=== PATIENT | female | born 1970 | race Hispanic/Latino ===

== ENCOUNTER 2019-09-10 13:40 | Emergency (ER) | payer OTHER, MEDICAID, SELFPAY ==
[2019-09-10 13:58] VITALS: BP 143/73; PULSE 104; RESP 20; TEMP 38.1; O2SAT 99; BMI 30.2
--- NOTE | 2019-09-10 14:09 | DI.RAD.S_ITS ---
PROCEDURE: XR CHEST 1V INDICATIONS: Flu like symptoms TECHNIQUE: One view of the chest was acquired. COMPARISON: [facility], CR, XR CHEST 1 VIEW, 02/24/2019, 20:11. [facility], CR, XR CHEST 1 VIEW, 03/08/2019, 23:09. FINDINGS: Surgical changes and devices: None. Lungs and pleura: Lungs are clear. No pleural effusions or pneumothorax. Mediastinum: Mediastinal contours appear normal. Heart size is normal. Bones and chest wall: No suspicious bony lesions. Overlying soft tissues appear unremarkable. IMPRESSION: No acute cardiopulmonary abnormality. Dictated by: Rm Guadarrama M.D. on 09/10/2019 at 15:07 Approved by: Rm Guadarrama M.D. on 09/10/2019 at 15:07
--- NOTE | 2019-09-10 14:38 | ED.FEVER ---
HPI - Fever <[facility] - Last Filed: 09/10/19 16:34> General Chief Complaint: Fever Stated Complaint: Bad bodyaches, chills, headache, sore throat, SOB Time Seen by Provider: 09/10/19 14:01 Source: patient Mode of arrival: Ambulatory Limitations: no limitations History of Present Illness HPI Narrative: The patient is a 48-year-old female nonsmoker with history of dental abscess who presents with a chief complaint of bad body aches, chills headache sore throat and shortness of breath that started yesterday. She complains of fevers as well. She states that resolved before arriving at the emergency department today. She states she has a slightly dry cough. She denies any exposure to sick people. She does not work in public. She denies any abdominal pain complaints with nausea with slight vomiting. She had slight loose stools yesterday, but normal today. She has taken 2 Tylenol to feel better this morning. She complains of sore throat and states she feels like she is swallowing glass. She denies any ear pain. She is concerned about coronavirus. Related Data Previous Rx's Medication Instructions Recorded ondansetron 4 mg PO Q6H PRN #20 tab 09/10/19 Allergies Allergy/AdvReac Type Severity Reaction Status Date / Time No Known Drug Allergies Allergy Verified 09/10/19 14:39 Review of Systems <[facility] - Last Filed: 09/10/19 16:34> Review of Systems Narrative: GENERAL: See HPI HEENT: Denies sinus pain, ear pain, sore throat, difficulty swallowing, dizziness. RESPIRATORY: See HPI CARDIOVASCULAR: Denies chest pain, palpitations, orthopnea, edema, GASTROINTESTINAL: See HPI : Denies dysuria, frequency, incontinence, hematuria, urinary retention. MUSCULOSKELETAL: denies weakness, joint pain, or bony pain SKIN: Denies rash, skin lesions, or other NEUROLOGIC: Denies weakness, headache, numbness, change in speech, confusion, seizures, incoordination. PSYCHIATRIC: No concerning psychosocial issues. 12 point review of systems is negative except for those stated above Exam <[facility] - Last Filed: 09/10/19 16:34> Narrative Exam Narrative: GENERAL: This is a well-nourished, well-developed patient, no acute distress HEAD: Atraumatic. Normocephalic. No temporal or scalp tenderness. EYES: Pupils equal round and reactive. Extraocular motions intact. No scleral icterus. No injection or drainage. ENT: Nose without bleeding, purulent drainage or septal hematoma. Throat without erythema, tonsillar hypertrophy or exudate. Uvula midline. Airway patent. NECK: Trachea midline. No JVD or lymphadenopathy. Supple, nontender, no meningeal signs. CARDIOVASCULAR: Regular rate and rhythm RESPIRATORY: Clear to auscultation. Breath sounds equal bilaterally. No wheezes, rales, or rhonchi. No cough. No increased respiratory effort. No accessory muscle use. GASTROINTESTINAL: Abdomen soft, non-tender, nondistended. No hepato-splenomegaly, or palpable masses. No guarding. Active bowel sounds all 4 quadrants. EXTREMITIES: No clubbing, cyanosis, or edema. No joint tenderness, effusion, or edema noted. BACK: Nontender without deformity or crepitance. No flank tenderness. NEURO: AOx3. SKIN: No rash or erythema on visible skin Initial Vital Signs Initial Vital Signs: Vital Signs Temperature 100.6 F H 09/10/19 13:58 Pulse Rate 104 H 09/10/19 13:58 Respiratory Rate 20 09/10/19 13:58 Blood Pressure 143/73 H 09/10/19 13:58 Pulse Oximetry 99 09/10/19 13:58 <Morgan Barron MD - Last Filed: 09/12/19 15:17> Initial Vital Signs Initial Vital Signs: Vital Signs Temperature 100.6 F H 09/10/19 13:58 Pulse Rate 104 H 09/10/19 13:58 Respiratory Rate 20 09/10/19 13:58 Blood Pressure 143/73 H 09/10/19 13:58 Pulse Oximetry 99 09/10/19 13:58 Scores <ARPITA Ellis - Last Filed: 09/10/19 16:34> GCS [place] coma scale eye opening: Spontaneous [place] coma scale verbal response: Orientated [place] coma scale motor response: Obey commands Sarah coma scale total score: 15 Course <ARPITA Ellis - Last Filed: 09/10/19 16:34> Orders Ordered: Discontinued Medications Acetaminophen (Tylenol) 975 mg PO NOW ONE Stop: 09/10/19 14:09 Last Admin: 09/10/19 14:53 Dose: 975 mg Documented by: LOU Ondansetron HCl (Zofran Odt) 4 mg PO NOW ONE Stop: 09/10/19 14:09 Last Admin: 09/10/19 14:54 Dose: 4 mg Documented by: LOU Vital Signs Vital signs: Vital Signs - 8 hr 09/10/19 13:58 09/10/19 14:53 09/10/19 15:03 Temperature 100.6 F H 100.6 F H Pulse Rate 104 H 84 Respiratory Rate 20 18 Blood Pressure 143/73 H Blood Pressure [Left Arm] 126/63 Pulse Oximetry 99 99 09/10/19 15:13 09/10/19 16:28 Temperature Pulse Rate 84 71 Respiratory Rate 15 14 Blood Pressure Blood Pressure [Left Arm] 128/64 115/59 L Pulse Oximetry 100 99 <Morgan Barron MD - Last Filed: 09/12/19 15:17> Orders Ordered: Discontinued Medications Acetaminophen (Tylenol) 975 mg PO NOW ONE Stop: 09/10/19 14:09 Last Admin: 09/10/19 14:53 Dose: 975 mg Documented by: LOU Ondansetron HCl (Zofran Odt) 4 mg PO NOW ONE Stop: 09/10/19 14:09 Last Admin: 09/10/19 14:54 Dose: 4 mg Documented by: LOU Vital Signs Vital signs: Vital Signs - 8 hr 09/10/19 13:58 09/10/19 14:53 09/10/19 15:03 Temperature 100.6 F H 100.6 F H Pulse Rate 104 H 84 Respiratory Rate 20 18 Blood Pressure 143/73 H Blood Pressure [Left Arm] 126/63 Pulse Oximetry 99 99 09/10/19 15:13 09/10/19 16:28 Temperature Pulse Rate 84 71 Respiratory Rate 15 14 Blood Pressure Blood Pressure [Left Arm] 128/64 115/59 L Pulse Oximetry 100 99 MDM - Fever <ARPITA Ellis - Last Filed: 09/10/19 16:34> Lab Data Labs: Point of Care Testing Rapid Strep A Negative Imaging Data Chest x-ray: Radiologist's Impression: [address] [address] XRay Report Signed Patient: Sakina Schmidt [facility]#: [id number] : 1970Acct:[id number] Age/Sex: 48 / FDate of Service: 09/10/19 Loc: ED Accession Number: [id number] Procedure: XR chest 1V Ordering Provider: Angelica Thomas PROCEDURE: XR CHEST 1V INDICATIONS: Flu like symptoms TECHNIQUE: One view of the chest was acquired. COMPARISON: [facility], CR, XR CHEST 1 VIEW, 02/24/2019, 20:11. [facility], CR, XR CHEST 1 VIEW, 03/08/2019, 23:09. FINDINGS: Surgical changes and devices: None. Lungs and pleura: Lungs are clear. No pleural effusions or pneumothorax. Mediastinum: Mediastinal contours appear normal. Heart size is normal. Bones and chest wall: No suspicious bony lesions. Overlying soft tissues appear unremarkable. IMPRESSION: No acute cardiopulmonary abnormality. Dictated by: Rm Guadarrama M.D. on 09/10/2019 at 15:07 Approved by: Rm Guadarrama M.D. on 09/10/2019 at 15:07 [facility] Narrative Medical decision making narrative: The patient is a 48-year-old female who presents with a chief complaint of shortness of breath that was episodic yesterday, fevers muscle aches and chills. She is concerned about coronavirus. Her chest x-ray is overall benign. Her rapid strep came back negative. Her vitals are hemodynamically stable, she appears well and nontoxic. She is able to tolerate p.o. fluids after Zofran. I gave her prescription of Zofran. Discussed at length self isolation, pushing fluids, [id number] medications as needed and able. Discussed that coronavirus test comes back in 2-5 days we will call her if it is positive or negative. Discussed come back to the ER for any acute concerns such as increased shortness of breath, inability keep down fluids etcetera. Encourage PCP follow-up in the next few days. Patient has no questions or concerns upon discharge and states understanding of return precautions as well as follow-up care. <Morgan Barron MD - Last Filed: 09/12/19 15:17> Lab Data Labs: Point of Care Testing Rapid Strep A Negative Discharge Plan Departure Patient Disposition: Home Clinical Impression: Viral illness Discharge Date/Time: 09/10/19 16:36 Instructions: DI for COVID-19 (Suspected or Confirmed ), Coronavirus Disease 2019, Can COVID-19 be prevented? Activity Restrictions/Additional Instructions: Thank you for trusting us with your care today As I discussed your rapid strep came back negative, your chest x-ray shows no signs of pneumonia Given your symptoms of fever, body aches, chills, dry cough etcetera it is possible that you have coronavirus. As discussed, please self isolate at home. Please push fluids please use [id number] medications as needed and able. I sent a prescription of nausea medication to [facility] in [place] Please wash your hands, cover your coughs and sneezes, self quarantine at home in the meantime Please follow-up with primary care provider next few days Prescriptions: New ondansetron 4 mg tablet,disintegrating 4 mg PO Q6H PRN (Reason: nausea and vomiting) Qty: 20 RF: 0
[2019-09-10 14:53] VITALS: TEMP 38.1
[2019-09-10] MEDS: ACETAMINOPHEN 325 MG TABLET 975 MG PO (14:53)
[2019-09-10] MEDS: ONDANSETRON 4 MG ODT PO (14:54)
[2019-09-10 15:03] VITALS: BP 126/63; PULSE 84; RESP 18; O2SAT 99
[2019-09-10 15:13] VITALS: BP 128/64; PULSE 84; RESP 15; O2SAT 100
[2019-09-10 16:28] VITALS: BP 115/59; PULSE 71; RESP 14; O2SAT 99
[2019-09-10 16:35] VITALS: TEMP 37
[2019-09-14 06:37] LABS: COVID19 Sendout Not Detected (Not Detected)
== END 2019-09-10 16:36 | disposition home or self-care (01) ==
PROVIDERS: Emergency Provider Nurse Practitioner Family
DX: R06.02 Shortness of breath (principal); R52 Pain, unspecified; R51 Headache; R50.9 Fever, unspecified; J02.9 Acute pharyngitis, unspecified; R05 Cough; R11.2 Nausea with vomiting, unspecified
CPT/HCPCS: 71045; 87070; 87635; 87880; 99284

== ENCOUNTER 2019-10-04 00:02 | Emergency (ER) | payer OTHER, MEDICAID, SELFPAY ==
[2019-10-04 00:10] VITALS: BP 154/73; PULSE 72; RESP 18; TEMP 36.6; O2SAT 100; BMI 30.2
--- NOTE | 2019-10-04 00:26 | ED_ITS ---
HPI - Fever General Chief Complaint: Fever Stated Complaint: coughing chest pain chills body ache Time Seen by Provider: 10/04/19 00:18 Source: patient Mode of arrival: Ambulatory Limitations: no limitations History of Present Illness HPI Narrative: The patient has been ill for 4 days. She has cough. She has midsternal discomfort with the cough. She also complains of headache, and sore throat. She has abdominal cramps, she has had vomiting with the cough. She has had fever to 100?. She had recently traveled used from [facility], to an area for COVID-19 is prevalent. Her family members there her not ill. There is no obvious exposure to COVID-19 while traveling. However, her is also ill with similar symptoms. They travel together. The patient has no asthma, no chronic respiratory problems. She has no chronic medications that she is using. Despite the illness, she is hydrating well, she is urinating normally. She has had intermittent dyspnea, she has no dyspnea at this time. Related Data Previous Rx's Medication Instructions Recorded ondansetron 4 mg PO Q6H PRN #20 tab 09/10/19 ondansetron 4 mg PO Q4H PRN #20 tab 10/04/19 Allergies Allergy/AdvReac Type Severity Reaction Status Date / Time No Known Drug Allergies Allergy Verified 09/10/19 14:39 Review of Systems Review of Systems ROS Unobtainable: All systems reviewed & are unremarkable except as noted in HPI and below Constitutional Constitutional: Denies chills, Reports fatigue, Denies fever(s), Denies frequent falls and Denies lethargy Eyes Eyes: Denies change in vision ENT Ears, Nose, Mouth, and Throat: Denies change in voice, Denies dizziness, Denies neck pain and Reports sore throat Cardiovascular Cardiovascular: Reports dyspnea Comments: Central sternal pain. Respiratory Respiratory: Reports cough, Reports dyspnea and Denies wheezing Gastrointestinal Gastrointestinal: Reports abdominal pain, Denies change in bowel habits, Denies diarrhea, Reports nausea and Reports vomiting Genitourinary Genitourinary: Denies dysuria Genitourinary: Denies dysuria Musculoskeletal Musculoskeletal: Denies back pain, Denies neck pain and Denies numbness Integumentary/Breasts Skin/Breast: Denies erythema and Denies rash Neurologic Neurologic: Denies behavioral changes, Denies confusion, Denies dizziness, Denies frequent falls and Denies numbness Psychiatric Psychiatric: Denies behavioral changes and Denies confusion Endocrine Endocrine: Reports fatigue Allergic/Immunologic Allergic/Immunologic: Denies wheezing Exam Initial Vital Signs Initial Vital Signs: Vital Signs Temperature 97.8 F 10/04/19 00:10 Pulse Rate 72 10/04/19 00:10 Respiratory Rate 18 10/04/19 00:10 Blood Pressure 154/73 H 10/04/19 00:10 Pulse Oximetry 100 10/04/19 00:10 Const General: cooperative and well developed Nutritional Appearance: well nourished [facility] Head: normocephalic and atraumatic Nose: external nose normal and No nasal discharge Mouth: oral mucosae normal Throat: posterior oropharynx normal Eyes Conjunctivae: conjunctivae normal Neck Neck: No lymphadenopathy Resp Auscultation: rales on the left at the base Cardio Rate: regular rate Rhythm: regular rhythm Heart Sounds: S1 normal, S2 normal, no click, no gallops, no murmurs and no rubs Pulses: normal peripheral pulses GI Inspection: non-distended Palpation: soft, no hepatosplenomegaly, No guarding, No pulsatile mass and No tender Auscultation: normal bowel sounds Back/Spine/Pelvis Back: No CVA tenderness Skin General: no rashes or lesions noted, No jaundice and No petechiae Neuro General: patient alert, patient oriented x3, gait normal and no focal motor deficits Speech: speech normal Extrem General: full ROM, no pedal edema and no calf tenderness Psych Appearance: well kempt Mental Status: mental status grossly normal Attitude: cooperative Thought Content: normal Judgment: judgment good Course Orders Ordered: ED Orders 10/04/19 00:27 XR chest 1V Stat Discontinued Medications Ondansetron HCl (Zofran Odt) 4 mg SL NOW ONE Stop: 10/04/19 02:04 Vital Signs Vital signs: Vital Signs - 8 hr 10/04/19 00:10 Temperature 97.8 F Pulse Rate 72 Respiratory Rate 18 Blood Pressure 154/73 H Pulse Oximetry 100 MDM - Fever Lab Data Labs: Lab Results 10/04/19 Range/Units 00:50 COVID-19 PCR Positive H (Negative) Imaging Data Chest x-ray: My Impression: Normal Discharge Plan Departure Patient Disposition: Home Clinical Impression: COVID-19 Discharge Date/Time: 06/15/20 02:41 Instructions: Coronavirus Disease 2019 Activity Restrictions/Additional Instructions: Your chest x-ray is clear, your oxygen saturation is in the upper 90s. Despite the situation your breathing normally. Most fever recover from COVID-19 without issues, return the ER if you develop difficulty breathing. Tylenol 2 tablets every 4 hours as needed for headache, fever, or overall discomfort Zofran every 4 hours as needed for nausea. Rest, drink plenty of fluids and stay well hydrated. It sounds as if your has the same infection. If either of you are working, you should be home for 2 weeks. Your may consider contacting his doctor to be tested. Your family should self quarantine and stay home for 2 weeks, until asymptomatic Prescriptions: New ondansetron 4 mg tablet,disintegrating 4 mg PO Q4H PRN (Reason: nausea and vomiting) Qty: 20 RF: 0 No Action ondansetron 4 mg tablet,disintegrating 4 mg PO Q6H PRN (Reason: nausea and vomiting) Qty: 20 RF: 0
--- NOTE | 2019-10-04 00:27 | DI.RAD.S_ITS ---
PROCEDURE: XR CHEST 1V INDICATIONS: cough. Fever. TECHNIQUE: One view of the chest was acquired. COMPARISON: [facility], CR, XR CHEST 1V, 09/10/2019, 14:25. FINDINGS: Surgical changes and devices: None. Lungs and pleura: Lungs are clear. No pleural effusions or pneumothorax. Mediastinum: Mediastinal contours appear normal. Heart size is normal. Bones and chest wall: No suspicious bony lesions. Overlying soft tissues appear unremarkable. IMPRESSION: No acute cardiopulmonary disease process. Dictated by: Anum Dey MD, PhD on 10/04/2019 at 8:11 Approved by: Anum Dey MD, PhD on 10/04/2019 at 8:26
[2019-10-04 02:25] LABS: COVID19 -Nasal RAPID POSITIVE (Negative)
[2019-10-04] MEDS: ONDANSETRON 4 MG ODT SL (02:27)
[2019-10-04] MEDS: ONDANSETRON 4 MG ODT PREPACK 1 BOTTLE MISC (02:27)
[2019-10-04 02:40] VITALS: BP 139/73; PULSE 71; RESP 16; TEMP 36.5; O2SAT 100
== END 2019-10-04 02:41 | disposition home or self-care (01) ==
PROVIDERS: Emergency Provider Emergency Medicine
DX: U07.1 COVID-19 (principal); R50.9 Fever, unspecified; R05 Cough
CPT/HCPCS: 71045; 87635; 93005; 99283; 99284

== ENCOUNTER 2019-10-09 16:38 | Emergency (ER) | payer OTHER, MEDICAID, SELFPAY ==
[2019-10-09 16:53] VITALS: BP 143/70; PULSE 98; RESP 20; TEMP 36.8; O2SAT 99
--- NOTE | 2019-10-09 17:16 | DI.RAD.S_ITS ---
PROCEDURE: XR CHEST 1V INDICATIONS: SOB, + COVID TECHNIQUE: One view of the chest was acquired. COMPARISON: [facility], CR, XR CHEST 1V, 10/04/2019, 1:13. FINDINGS: Surgical changes and devices: None. Lungs and pleura: Increased bronchovascular markings in bilateral hilar region are seen. Ill-defined opacity at right infrahilar region is noted concerning for right lower lobe infiltrate. No pleural effusions or pneumothorax. Mediastinum: Mediastinal contours appear normal. Heart size is normal. Bones and chest wall: No suspicious bony lesions. Overlying soft tissues appear unremarkable. IMPRESSION: Increased bronchovascular markings in bilateral hilar regions, underlying small right infrahilar infiltrate cannot be excluded. No gross pneumothorax. Dictated by: Camden Cruz M.D. on 10/09/2019 at 18:18 Approved by: Camden Cruz M.D. on 10/09/2019 at 18:19
[2019-10-09 17:45] LABS: Add Manual Diff / Slide Review NO; Basophils Absolute Auto 0 /uL (0-100); Basophils Percent Auto 0.1 % (0-2); Eosinophils Absolute Auto 0 /uL (0-450); Eosinophils Percent Auto 0.1 % (2-4); Hematocrit 40.6 % (36-46); Hemoglobin 13.9 g/dL (12.0-16.0); Lymphocytes Absolute Auto 1400 /uL (1100-4500); Lymphocytes Percent Auto 31.4 % (25-40); Mean Corpuscular HGB Conc 34.2 % (30-36); Mean Corpuscular Hemoglobin 29.2 PG (26-34); Mean Corpuscular Volume 85.4 fL (80-100); Monocytes Absolute Auto 400 /uL (0-900); Monocytes Percent Auto 10.3 % (3-14); Neutrophils Absolute Auto 2500 /uL (1500-7000); Neutrophils Percent Auto 58.1 % (50-75); Platelet Count 247 X10^3/uL (150-400); Red Blood Cell Count 4.75 X10^6/uL (4.0-5.2); Red Cell Distribution Width 15.6 % (11.6-14.8); White Blood Cell Count 4.3 X10^3/uL (4.5-11.0)
--- NOTE | 2019-10-09 17:46 | ED_ITS ---
HPI - Nausea/Vomiting/Diarrhea <SAUL Mcmahon - Last Filed: 10/09/19 20:46> General Chief complaint: Nausea/Vomiting/Diarrhea Stated complaint: Positive Covid/Feeling sick Time Seen by Provider: 10/09/19 16:56 Source: patient Mode of arrival: Ambulatory Limitations: no limitations History of Present Illness HPI Narrative: 49-year-old female who tested positive for COVID-19 5 days ago on 10/04/19, presents emergency department complaining of increasing shortness of breath and vomiting. She reports she has had a cough for about a week. Over the past few days she has noticed she has had some increasing shortness of breath and dry cough especially at night swelling down. Patient has been vomiting for the past 2-3 days, she states she is unable to keep any fluid or food down today, patient states she usually vomits after she coughs. Patient also reports of intermittent epigastric tenderness that is worse after vomiting. Patient denies headache, syncope, chest pain, dizziness, diarrhea, dysuria, or any other concerns. Related Data Previous Rx's Medication Instructions Recorded ondansetron 4 mg PO Q6H PRN #20 tab 09/10/19 ondansetron 4 mg PO Q4H PRN #20 tab 10/04/19 dexamethasone 10 mg PO DAILY 4 Days #10 tab 10/09/19 metoclopramide HCl 10 mg PO Q6H #10 tab 10/09/19 ondansetron 4 mg PO Q6H PRN #14 tab 10/09/19 Allergies Allergy/AdvReac Type Severity Reaction Status Date / Time No Known Drug Allergies Allergy Verified 10/09/19 16:55 Review of Systems <SAUL Mcmahon - Last Filed: 10/09/19 20:46> Review of Systems Narrative: REVIEW OF SYSTEMS: GENERAL: Denies fevers. HENT: No head trauma or hearing loss. EYES: No vision changes. CARDIOVASCULAR: No chest pain or syncope. RESPIRATORY: Reports shortness of breath and dry cough, see HPI. GASTROINTESTINAL: No nausea, vomiting, diarrhea, or constipation. MUSCULOSKELETAL: No weakness or injury. INTEGUMENTARY: No rash, lesions, or pruritus. NEURO: No memory loss, or confusion. Patient History <SAUL Mcmahon - Last Filed: 10/09/19 20:46> Medical History No chronic diseases present (Acute) Social History Smoking Status: Never smoker Smoking Status: Never smoker alcohol intake frequency: 0-2 drinks per day Substance Use Type: does not use Exam <SAUL Mcmahon - Last Filed: 10/09/19 20:46> Initial Vital Signs Initial Vital Signs: Vital Signs Temperature 98.3 F 10/09/19 16:53 Pulse Rate 98 H 10/09/19 16:53 Respiratory Rate 20 10/09/19 16:53 Blood Pressure 143/70 H 10/09/19 16:53 Pulse Oximetry 99 10/09/19 16:53 PHYSICAL EXAMINATION: GENERAL: Well groomed, alert, and cooperative. Answers questions promptly and appropriately. Vital signs noted. HENT: Normocephalic, atraumatic. Ear canals patent. TMs intact without mucus or erythema. Oropharynx without erythema. Tonsils are not present. EYES: Conjunctiva pink, sclera white, no periorbital swelling. No discharge. CHEST: Normal to inspection and without deformities. CARDIOVASCULAR: S1 and S2 sounds normal. Regular rate and rhythm, no murmurs, clicks, or bruits. RESPIRATORY: Normal respiratory rate, trachea midline, airway patent. No stridor, nasal flaring or accessory muscle use. Able to speak in full sentences. Lungs are clear in all vogel without wheeze, rhonchi, or crackles. Dry cough heard throughout examination. MUSCULOSKELETAL: Normal gait and coordination. Equal tone and mass bilaterally. EXTREMITIES: Moves all extremities. SKIN: Warm, dry, soft, appropriate color for ethnicity. No lesions, rashes, or wounds to visualized areas. NEURO: Alert and Oriented X 3. Good coordination. No ataxia or cognitive issues. PSYCH: Appropriate affect and mood. <Morgan Quinn MD - Last Filed: 10/10/19 07:29> Initial Vital Signs Initial Vital Signs: Vital Signs Temperature 98.3 F 10/09/19 16:53 Pulse Rate 98 H 10/09/19 16:53 Respiratory Rate 20 10/09/19 16:53 Blood Pressure 143/70 H 10/09/19 16:53 Pulse Oximetry 99 10/09/19 16:53 Course <SAUL Mcmahon - Last Filed: 10/09/19 20:46> Course Course Narrative: 1900: Patient was given p.o. trial of water, small amount of vomiting. Patient was administered Reglan. Reports she is feeling better, resolution of epigastric pain. Orders Ordered: Discontinued Medications Dexamethasone (Decadron) 10 mg PO NOW ONE Stop: 10/09/19 17:17 Last Admin: 10/09/19 17:51 Dose: 10 mg Documented by: DARRIN Sodium Chloride (Normal Saline 0.9%) 1,000 mls @ 1,000 mls/hr IV BOLUS ONE Stop: 10/09/19 18:15 Last Infusion: 10/09/19 19:50 Dose: 0 mls/hr Documented by: Admin: 10/09/19 17:52 Dose: 1,000 mls/hr Documented by: DARRIN Metoclopramide HCl (Reglan) 10 mg IV NOW ONE Stop: 10/09/19 19:29 Last Admin: 10/09/19 19:32 Dose: 10 mg Documented by: DARRIN Ondansetron HCl (Zofran) 4 mg IV NOW ONE Stop: 10/09/19 17:17 Last Admin: 10/09/19 17:51 Dose: 4 mg Documented by: DARRIN Ondansetron HCl (Zofran Odt Prepack) 1 bottle MISC SEEINSTR ONE Stop: 10/09/19 19:05 Last Admin: 10/09/19 20:13 Dose: 1 bottle Documented by: DARRIN Pantoprazole Sodium (Protonix) 40 mg IV NOW ONE Stop: 10/09/19 17:17 Last Admin: 10/09/19 17:51 Dose: 40 mg Documented by: DARRIN Consultations Consultation #1: Patient staffed with Dr. Quinn, discussed test, test results, and plan of care. Vital Signs Vital signs: Vital Signs - 8 hr 10/09/19 16:53 10/09/19 18:59 10/09/19 19:37 Temperature 98.3 F 98.1 F Pulse Rate 98 H 88 80 Respiratory Rate 20 16 22 Blood Pressure 143/70 H Blood Pressure [Right Arm] 119/61 140/86 Pulse Oximetry 99 99 100 10/09/19 20:00 Temperature Pulse Rate 87 Respiratory Rate Blood Pressure Blood Pressure [Right Arm] 134/70 Pulse Oximetry 100 <Morgan Quinn MD - Last Filed: 10/10/19 07:29> Orders Ordered: Discontinued Medications Dexamethasone (Decadron) 10 mg PO NOW ONE Stop: 10/09/19 17:17 Last Admin: 10/09/19 17:51 Dose: 10 mg Documented by: DARRIN Sodium Chloride (Normal Saline 0.9%) 1,000 mls @ 1,000 mls/hr IV BOLUS ONE Stop: 10/09/19 18:15 Last Infusion: 10/09/19 19:50 Dose: 0 mls/hr Documented by: Admin: 10/09/19 17:52 Dose: 1,000 mls/hr Documented by: DARRIN Metoclopramide HCl (Reglan) 10 mg IV NOW ONE Stop: 10/09/19 19:29 Last Admin: 10/09/19 19:32 Dose: 10 mg Documented by: DARRIN Ondansetron HCl (Zofran) 4 mg IV NOW ONE Stop: 10/09/19 17:17 Last Admin: 10/09/19 17:51 Dose: 4 mg Documented by: DARRIN Ondansetron HCl (Zofran Odt Prepack) 1 bottle MISC SEEINSTR ONE Stop: 10/09/19 19:05 Last Admin: 10/09/19 20:13 Dose: 1 bottle Documented by: DARRIN Pantoprazole Sodium (Protonix) 40 mg IV NOW ONE Stop: 10/09/19 17:17 Last Admin: 10/09/19 17:51 Dose: 40 mg Documented by: DARRIN Vital Signs Vital signs: Vital Signs - 8 hr 10/09/19 16:53 10/09/19 18:59 10/09/19 19:37 Temperature 98.3 F 98.1 F Pulse Rate 98 H 88 80 Respiratory Rate 20 16 22 Blood Pressure 143/70 H Blood Pressure [Right Arm] 119/61 140/86 Pulse Oximetry 99 99 100 10/09/19 20:00 Temperature Pulse Rate 87 Respiratory Rate Blood Pressure Blood Pressure [Right Arm] 134/70 Pulse Oximetry 100 MDM - Nausea/Vomiting/Diarrhea <SAUL Mcmahon - Last Filed: 10/09/19 20:46> Medical Records Attestation: I reviewed the patient's medical records. Lab Data Attestation: I reviewed the patient's lab results. Result diagrams: 10/09/19 17:21 10/09/19 17:21 Labs: Lab Results 10/09/19 10/09/19 10/09/19 Range/Units 17:21 17:21 17:21 WBC 4.3 L (4.5-11.0) X10^3/uL RBC 4.75 (4.0-5.2) X10^6/uL Hgb 13.9 (12.0-16.0) g/dL Hct 40.6 (36-46) % MCV 85.4 (80-100) fL MCH 29.2 (26-34) PG MCHC 34.2 (30-36) % RDW 15.6 H (11.6-14.8) % Plt Count 247 (150-400) X10^3/uL Neut % (Auto) 58.1 (50-75) % Lymph % (Auto) 31.4 (25-40) % [place] % (Auto) 10.3 (3-14) % Eos % (Auto) 0.1 L (2-4) % Baso % (Auto) 0.1 (0-2) % Neut # (Auto) 2500 (6276-2433) /uL Lymph # (Auto) 1400 (3123-3186) /uL [place] # (Auto) 400 (0-900) /uL Eos # (Auto) 0 (0-450) /uL Baso # (Auto) 0 (0-100) /uL Sodium 142 (137-145) mmol/L Potassium 3.4 (3.4-5.1) mmol/L Chloride 103 (98-107) mmol/L Carbon Dioxide 26 (22-32) mmol/L BUN 10 (7-17) mg/dL Creatinine 0.53 (0.52-1.04) mg/dL Estimated GFR > 60.0 (>60) mL/min BUN/Creatinine Ratio 18.9 (6-22) Glucose 117 H (70-100) mg/dL Lactate 1.0 (0.7-2.1) mmol/L Calcium 8.9 (8.4-10.2) mg/dL Total Bilirubin 0.9 (0.2-1.3) mg/dL AST 108 H (14-36) IU/L ALT 56 H (<35) IU/L Alkaline Phosphatase 185 H (38-126) U/L Total Creatine Kinase (30-135) U/L CK-MB (CK-2) CK-MB (CK-2) Rel Index Troponin I (0.01-0.034) ng/mL Total Protein 7.7 (6.3-8.2) g/dL Albumin 4.0 (3.5-5.0) g/dL Globulin 3.7 (1.7-4.1) g/dL Albumin/Globulin Ratio 1.1 (1.0-2.8) 10/08/ Range/Units 17:21 WBC (4.5-11.0) X10^3/uL RBC (4.0-5.2) X10^6/uL Hgb (12.0-16.0) g/dL Hct (36-46) % MCV (80-100) fL MCH (26-34) PG MCHC (30-36) % RDW (11.6-14.8) % Plt Count (150-400) X10^3/uL Neut % (Auto) (50-75) % Lymph % (Auto) (25-40) % [place] % (Auto) (3-14) % Eos % (Auto) (2-4) % Baso % (Auto) (0-2) % Neut # (Auto) (4229-4980) /uL Lymph # (Auto) (0460-1453) /uL [place] # (Auto) (0-900) /uL Eos # (Auto) (0-450) /uL Baso # (Auto) (0-100) /uL Sodium (137-145) mmol/L Potassium (3.4-5.1) mmol/L Chloride (98-107) mmol/L Carbon Dioxide (22-32) mmol/L BUN (7-17) mg/dL Creatinine (0.52-1.04) mg/dL Estimated GFR (>60) mL/min BUN/Creatinine Ratio (6-22) Glucose (70-100) mg/dL Lactate (0.7-2.1) mmol/L Calcium (8.4-10.2) mg/dL Total Bilirubin (0.2-1.3) mg/dL AST (14-36) IU/L ALT (<35) IU/L Alkaline Phosphatase (38-126) U/L Total Creatine Kinase 48 (30-135) U/L CK-MB (CK-2) TNP CK-MB (CK-2) Rel Index TNP Troponin I < 0.012 (0.01-0.034) ng/mL Total Protein (6.3-8.2) g/dL Albumin (3.5-5.0) g/dL Globulin (1.7-4.1) g/dL Albumin/Globulin Ratio (1.0-2.8) Imaging Data Chest x-ray: Radiologist's Impression: [address] [address] XRay Report Signed Patient: Sakina Schmidt SMR#: [id number] : 1970Acct:[id number] Age/Sex: 49 / FDate of Service: 10/09/19 Loc: ED Accession Number: [id number] Procedure: XR chest 1V Ordering Provider: Viri Regalado PROCEDURE: XR CHEST 1V INDICATIONS: SOB, + COVID TECHNIQUE: One view of the chest was acquired. COMPARISON: [facility], , XR CHEST 1V, 10/04/2019, 1:13. FINDINGS: Surgical changes and devices: None. Lungs and pleura: Increased bronchovascular markings in bilateral hilar region are seen. Ill-defined opacity at right infrahilar region is noted concerning for right lower lobe infiltrate. No pleural effusions or pneumothorax. Mediastinum: Mediastinal contours appear normal. Heart size is normal. Bones and chest wall: No suspicious bony lesions. Overlying soft tissues appear unremarkable. IMPRESSION: Increased bronchovascular markings in bilateral hilar regions, underlying small right infrahilar infiltrate cannot be excluded. No gross pneumothorax. Dictated by: Camden Cruz M.D. on 10/09/2019 at 18:18 Approved by: Camden Cruz M.D. on 10/09/2019 at 18:19 ECG Data Interpretation: 1738: Sinus rhythm, rate 84, WA interval 171, QTC 431. No ST elevation or ST depression. No T-wave abnormality, no ectopy. No prior EKGs for comparison. EKG also viewed by Dr. quinn per protocol. MDM Narrative Medical decision making narrative: 49yo male female tested positive for COVID-19 5 days prior, presents emergency department for increased shortness of breath and intermittent vomiting. Chest x-ray shows mild infiltrates which I suspect this is related to COVID-19 and the cause of shortness of breath. Less likely ACS due to lack of you changes on EKG, negative troponin, and no cardiomegaly seen and examination. Less concern for respiratory compromise as patient maintain oxygen saturations above 98 the entire time, was able to ambulate without decreased oxygen saturation or respiratory distress. Less concern for acute abdominal etiology due to lack of abdominal pain on examination, no a blood cell count, lactate within normal limits, patient did vomit after administration of Zofran and p.o. fluids. Reglan was given, no vomiting post Reglan. Patient was given a prescription for Zofran and Reglan. Patient was given dexamethasone due to recent study showing improvement in COVID-19 outcomes, he was sent with a script. Patient was given very strict return precautions for new or worsening symptoms. He was encouraged to use [id number] cold medicine to help with symptoms as well. Patient agreed to plan of care verbalized understanding. He was encouraged to maintain isolation until 3 days after symptoms have resolved. <Morgan Quinn MD - Last Filed: 10/10/19 07:29> Lab Data Labs: Lab Results 10/09/19 10/09/19 10/09/19 Range/Units 17:21 17:21 17:21 WBC 4.3 L (4.5-11.0) X10^3/uL RBC 4.75 (4.0-5.2) X10^6/uL Hgb 13.9 (12.0-16.0) g/dL Hct 40.6 (36-46) % MCV 85.4 (80-100) fL MCH 29.2 (26-34) PG MCHC 34.2 (30-36) % RDW 15.6 H (11.6-14.8) % Plt Count 247 (150-400) X10^3/uL Neut % (Auto) 58.1 (50-75) % Lymph % (Auto) 31.4 (25-40) % [place] % (Auto) 10.3 (3-14) % Eos % (Auto) 0.1 L (2-4) % Baso % (Auto) 0.1 (0-2) % Neut # (Auto) 2500 (6876-6873) /uL Lymph # (Auto) 1400 (5650-0177) /uL [place] # (Auto) 400 (0-900) /uL Eos # (Auto) 0 (0-450) /uL Baso # (Auto) 0 (0-100) /uL Sodium 142 (137-145) mmol/L Potassium 3.4 (3.4-5.1) mmol/L Chloride 103 (98-107) mmol/L Carbon Dioxide 26 (22-32) mmol/L BUN 10 (7-17) mg/dL Creatinine 0.53 (0.52-1.04) mg/dL Estimated GFR > 60.0 (>60) mL/min BUN/Creatinine Ratio 18.9 (6-22) Glucose 117 H (70-100) mg/dL Lactate 1.0 (0.7-2.1) mmol/L Calcium 8.9 (8.4-10.2) mg/dL Total Bilirubin 0.9 (0.2-1.3) mg/dL AST 108 H (14-36) IU/L ALT 56 H (<35) IU/L Alkaline Phosphatase 185 H (38-126) U/L Total Creatine Kinase (30-135) U/L CK-MB (CK-2) CK-MB (CK-2) Rel Index Troponin I (0.01-0.034) ng/mL Total Protein 7.7 (6.3-8.2) g/dL Albumin 4.0 (3.5-5.0) g/dL Globulin 3.7 (1.7-4.1) g/dL Albumin/Globulin Ratio 1.1 (1.0-2.8) 10/08/20 Range/Units 17:21 WBC (4.5-11.0) X10^3/uL RBC (4.0-5.2) X10^6/uL Hgb (12.0-16.0) g/dL Hct (36-46) % MCV (80-100) fL MCH (26-34) PG MCHC (30-36) % RDW (11.6-14.8) % Plt Count (150-400) X10^3/uL Neut % (Auto) (50-75) % Lymph % (Auto) (25-40) % [place] % (Auto) (3-14) % Eos % (Auto) (2-4) % Baso % (Auto) (0-2) % Neut # (Auto) (0821-1481) /uL Lymph # (Auto) (2669-4179) /uL [place] # (Auto) (0-900) /uL Eos # (Auto) (0-450) /uL Baso # (Auto) (0-100) /uL Sodium (137-145) mmol/L Potassium (3.4-5.1) mmol/L Chloride (98-107) mmol/L Carbon Dioxide (22-32) mmol/L BUN (7-17) mg/dL Creatinine (0.52-1.04) mg/dL Estimated GFR (>60) mL/min BUN/Creatinine Ratio (6-22) Glucose (70-100) mg/dL Lactate (0.7-2.1) mmol/L Calcium (8.4-10.2) mg/dL Total Bilirubin (0.2-1.3) mg/dL AST (14-36) IU/L ALT (<35) IU/L Alkaline Phosphatase (38-126) U/L Total Creatine Kinase 48 (30-135) U/L CK-MB (CK-2) TNP CK-MB (CK-2) Rel Index TNP Troponin I < 0.012 (0.01-0.034) ng/mL Total Protein (6.3-8.2) g/dL Albumin (3.5-5.0) g/dL Globulin (1.7-4.1) g/dL Albumin/Globulin Ratio (1.0-2.8) Discharge Plan Departure Patient Disposition: Home Clinical Impression: COVID-19 Nausea & vomiting Qualifiers: Vomiting type: unspecified Vomiting Intractability: unspecified Qualified Code(s): R11.2 - Nausea with vomiting, unspecified Discharge Date/Time: 10/09/19 20:20 Instructions: DI for Vomiting -- Adult, DI for COVID-19 (Suspected or Confirmed ), Coronavirus Disease 2019, Can COVID-19 be prevented? Activity Restrictions/Additional Instructions: Thank you for entrusting me with your care today. As discussed, your chest x-ray shows some non severe changes that are consistent with COVID-19, your oxygen saturation is good and you do not need admission at this time. I prescribed you some nausea medication called ondansetron and metoclopramide, take this as needed to help with keeping down fluids and food. Have also prescribed you dexamethasone, this medication can cause anxiety, high blood sugar, jitters, and insomnia but can help with COVID-19 shortness of breath. Your medications were sent to [facility] in [place]. Make an appointment to follow up with your primary care provider in the next 1-2 weeks for further evaluation. *You have been diagnosed with COVID-19 *What to do: * per recommendations from the CDC and the [facility] Department of Health * stay home except to get medical care. Restrict activities outside your home, except for getting medical care. Do not go to work, school, or public areas. Avoid using public transportation, ride sharing, or taxis. * separate yourself from other people in your home. * call ahead before visiting your doctor * Wear a face mask * Cover your coughs and sneezes * Clean your hands often * Avoid sharing household items * Clean all high-touch services every day * Monitor your symptoms and seek prompt medical attention if your illness is worsening, particularly with difficulty in breathing. Discussed continuing home isolation * for individuals with symptoms who are confirmed or suspected cases of COVID-19 and are directed to care for themselves at home, discontinue home isolation under the following conditions: 1. At least 72 hours have passed since recovery, defined as resolution of fever without the use of fever reducing medications, and improvement in respiratory symptoms (cough, shortness of breath) AND, 2. At least 7 days have passed since symptoms 1st appeared Individuals with laboratory confirmed COVID-19 who have not had any symptoms may discontinue home isolation when at least 7 days have passed since the date of their 1st COVID-19 diagnostic test and have had no subsequent illness COVID-19 can cause shortness of breath and continued cough. You can take over -the-counter cold medicine to help with symptoms. Return emergency department for new or worsening symptoms such as severe shortness of breath that you cannot walk across a room without stopping to catch your breath, high fevers, passing out, uncontrollable vomiting, chest pain, or any other concerns. Prescriptions: New ondansetron 4 mg tablet,disintegrating 4 mg PO Q6H PRN (Reason: nausea and vomiting) Qty: 14 RF: 0 dexamethasone 4 mg tablet 10 mg PO DAILY 4 Days Qty: 10 RF: 0 metoclopramide HCl 10 mg tablet,disintegrating 10 mg PO Q6H Qty: 10 RF: 0 No Action ondansetron 4 mg tablet,disintegrating 4 mg PO Q6H PRN (Reason: nausea and vomiting) Qty: 20 RF: 0 ondansetron 4 mg tablet,disintegrating 4 mg PO Q4H PRN (Reason: nausea and vomiting) Qty: 20 RF: 0 Referrals: Love Pearl [Primary Care Provider] -
[2019-10-09] MEDS: DEXAMETHASONE 10 MG/ML VIAL PO (17:51)
[2019-10-09] MEDS: PANTOPRAZOLE 40 MG VIAL IV (17:51)
[2019-10-09] MEDS: ONDANSETRON 4 MG/2 ML INJ IV (17:51)
[2019-10-09] MEDS: SODIUM CHLORIDE 0.9% 1,000 ML 1000 ML IV (17:52)
[2019-10-09 17:58] LABS: Creatine Kinase 48 U/L (30-135)
[2019-10-09 17:59] LABS: Alanine Aminotransferase 56 IU/L (<35); Albumin Globulin Ratio 1.1 (1.0-2.8); Alkaline Phosphatase 185 U/L (38-126); Aspartate Aminotransferase 108 IU/L (14-36); BUN Creatinine Ratio 18.9 (6-22); Bilirubin Total 0.9 mg/dL (0.2-1.3); Blood Urea Nitrogen 10 mg/dL (7-17); Calcium 8.9 mg/dL (8.4-10.2); Carbon Dioxide 26 mmol/L (22-32); Chloride 103 mmol/L (98-107); Estimated Glomerular Filt Rate > 60.0 mL/min (>60); Globulin 3.7 g/dL (1.7-4.1); Glucose 117 mg/dL (70-100); HEMOLYSIS < 15 (0-50); Potassium 3.4 mmol/L (3.4-5.1); Sodium 142 mmol/L (137-145); Total Protein 7.7 g/dL (6.3-8.2)
[2019-10-09 18:10] LABS: Troponin I < 0.012 ng/mL (0.01-0.034)
[2019-10-09 18:59] VITALS: BP 119/61; PULSE 88; RESP 16; O2SAT 99
[2019-10-09] MEDS: METOCLOPRAMIDE 10 MG/2 ML INJ IV (19:32)
[2019-10-09 19:37] VITALS: BP 140/86; PULSE 80; RESP 22; TEMP 36.7; O2SAT 100
[2019-10-09 20:00] VITALS: BP 134/70; PULSE 87; O2SAT 100
[2019-10-09] MEDS: ONDANSETRON 4 MG ODT PREPACK 1 BOTTLE MISC (20:13)
== END 2019-10-09 20:20 | disposition home or self-care (01) ==
PROVIDERS: Emergency Provider Nurse Practitioner; PCP Registered Nurse
DX: U07.1 COVID-19 (principal); R06.02 Shortness of breath; R11.2 Nausea with vomiting, unspecified
CPT/HCPCS: 36415; 71045; 80053; 82550; 83605; 84484; 85025; 93005; 96361; 96374; 96375; 99284; C9113; J1100; J2405; J2765

== ENCOUNTER 2021-09-22 19:37 | Emergency (ER) | payer OTHER, MEDICAID, SELFPAY ==
[2021-09-22 19:56] VITALS: BP 175/84; PULSE 65; RESP 16; TEMP 36.1; O2SAT 100; BMI 34.2
--- NOTE | 2021-09-22 21:23 | PC.NURSE ---
Patient had 2 punch biopsies done on left corea. 2 days ago developed pain at sites.
[2021-09-22] MEDS: DOXYCYCLINE HYCLATE 100 MG TABLET PO (21:43)
[2021-09-22 21:47] VITALS: BP 184/81; PULSE 67; RESP 18; O2SAT 100
--- NOTE | 2021-09-23 07:07 | ED.WOUNDLAC ---
HPI - Wound/Laceration General Chief Complaint: Wound/Laceration Stated Complaint: Infection post derm op 30 days Time Seen by Provider: 09/22/21 20:30 Source: patient Mode of arrival: Ambulatory History of Present Illness HPI narrative: 51-year-old female nonsmoker with non significant chronic medical history presents with a chief complaint of 2 poorly healing wounds on her left corea. She states that she had 2 suspicious lesions on her leg that were excised by dermatology about 1 month ago. She states there is very little pain but there had been some drainage of pus but that has since resolved. There are not scabbed over, there is no swelling or surrounding redness. She denies any red streaks, fever, chills or significant pain but is admittedly concerned that there may be infection and states she cannot get in with the business economist for another few weeks. She is otherwise well and free of complaint Related Data Previous Rx's Medication Instructions Recorded ondansetron 4 mg disintegrating 4 mg PO Q6H PRN #20 tab 09/10/19 tablet ondansetron 4 mg disintegrating 4 mg PO Q4H PRN #20 tab 10/04/19 tablet metoclopramide HCl 10 mg 10 mg PO Q6H #10 tab 10/09/19 disintegrating tablet ondansetron 4 mg disintegrating 4 mg PO Q6H PRN #14 tab 10/09/19 tablet doxycycline hyclate 100 mg tablet 100 mg PO BID #20 tab 09/22/21 Allergies Allergy/AdvReac Type Severity Reaction Status Date / Time No Known Drug Allergies Allergy Verified 10/09/19 16:55 Review of Systems Review of Systems Narrative: GENERAL: See HPI HEENT: Denies sinus pain, ear pain, sore throat, difficulty swallowing, dizziness. RESPIRATORY: Denies dyspnea, cough, wheezing, hemoptysis, sputum. CARDIOVASCULAR: Denies chest pain, palpitations, orthopnea, edema, GASTROINTESTINAL: Denies nausea, vomiting, abdominal pain, diarrhea, constipation, melena. : Denies dysuria, frequency, incontinence, hematuria, urinary retention. MUSCULOSKELETAL: See HPI SKIN: See HPI NEUROLOGIC: Denies weakness, headache, numbness, change in speech, confusion, seizures, incoordination. PSYCHIATRIC: No concerning psychosocial issues. 12 point review of systems is negative except for those stated above Patient History Medical History No chronic diseases present Social History Smoking Status: Never smoker Smoking Status: Never smoker alcohol intake frequency: 0-2 drinks per day Substance Use Type: does not use Exam Narrative Exam Narrative: GEN: AOx3 and in mild distress EYES: Pupils are equal, round, and reactive to light and accommodation. Extraoccular muscles are intact bilaterally. There is no subconjunctival hemorrhage or exudate. CHEST: Lungs are clear to auscultation bilaterally and free of wheezes, rales, or rhonchi. Heart rate is regular rhythm, there are no murmurs, clicks, rubs, or gallops. There is no chest wall tenderness. ABD: Abdomen is soft and nontender. There is no guarding or rebound. Bowel sounds are normal in all 4 quadrants. There is no mass or organomegaly. EXT: Full painless ROM of all extremities with no loss of sensation or strength. SKIN: 2 small, 1 cm lesions on left anterior corea that are slightly ulcerated and now scabbed over. No fluctuance, induration or drainage. No surrounding erythema or perceived pain. Attempt to obtain culture is likely unsuccessful given how dry the wounds are. Initial Vital Signs Initial Vital Signs: Vital Signs Temperature 97 F L 09/22/21 19:56 Pulse Rate 65 09/22/21 19:56 Respiratory Rate 16 09/22/21 19:56 Blood Pressure 175/84 H 09/22/21 19:56 Pulse Oximetry 100 09/22/21 19:56 Course Orders Ordered: Discontinued Medications Doxycycline Hyclate (Doxycycline Hyclate 100 Mg Tablet) 100 mg PO NOW ONE Stop: 09/22/21 21:41 Last Admin: 09/22/21 21:43 Dose: 100 mg Documented by: MIAH MDM - Wound/Laceration MDM Narrative Medical decision making narrative: Patient has very reassuring history and physical exam, she shows no signs of sepsis, there is no fluctuance or induration or even significant erythema to suggest underlying abscess, incision and drainage considered but clearly not a viable option. Wound culture attempted but likely unsuccessful. I did discuss with her the potential of a healing infection given her report of purulent drainage, hence the decision to send course of antibiotics to her pharmacy. Importance of follow-up is stressed, return precautions discussed and questions answered to her apparent satisfaction Discharge Plan Departure Patient Disposition: Home Clinical Impression: Wound, surgical, infected Instructions: DI for Wound Infection Activity Restrictions/Additional Instructions: *You have been diagnosed with [poorly healing procedures site, possible early infection. As we discussed your history and physical exam are very reassuring, I obtained a wound culture which will take a few days to result out. If there is any change required we will call you, otherwise no news is good news. *What to do: *Please continue to take your regular medications as directed. [ x] New medication [facility] to your [facility]: [facility] [ ] New medication written as a paper prescription [ ] No new medications given *Please follow up with your primary care provider in 2-3 days, call for an appointment. Let them know you were seen in the Emergency Department and that we ask that you be seen in follow up. We will electronically transmit a record of today's note if your PCP is in our system *If you do not have a primary care provider please contact the [facility] Resource line at [phone]. They will ask some questions about your medical history and help get you set up with a doctor in the community. *Return to Emergency Department if you should have any new, worsening or concerning symptoms, such as [fever greater than 101 F, shaking chills, worsening pain, persistent vomiting or other bothersome symptoms] Prescriptions: New doxycycline hyclate 100 mg tablet 100 mg PO BID Qty: 20 0RF No Action ondansetron 4 mg tablet,disintegrating 4 mg PO Q6H PRN (Reason: nausea and vomiting) Qty: 14 0RF metoclopramide HCl 10 mg tablet,disintegrating 10 mg PO Q6H Qty: 10 0RF ondansetron 4 mg tablet,disintegrating 4 mg PO Q6H PRN (Reason: nausea and vomiting) Qty: 20 0RF ondansetron 4 mg tablet,disintegrating 4 mg PO Q4H PRN (Reason: nausea and vomiting) Qty: 20 0RF Rx Instructions: give 1st dose 30min before emetogenic chemo Referrals: Love Pearl FNP-C [Primary Care Provider] - Visit Report Forms: Patient Portal/API
== END 2021-09-22 21:48 | disposition home or self-care (01) ==
PROVIDERS: Emergency Provider Emergency Medicine; PCP Registered Nurse
DX: T81.41XA Infection following a procedure, superficial incisional surgical site, initial encounter (principal)
CPT/HCPCS: 87070; 87075; 87077; 87147; 87186; 87205; 99283

== ENCOUNTER 2022-04-27 12:06 | Observation (INO) | payer OTHER, MEDICAID, SELFPAY ==
[2022-04-27] VITALS (16 sets, daily range): BP systolic 119–207; BP diastolic 63–98; PULSE 74–107; RESP 15–24; TEMP 35.8–36.4; O2SAT 95–100; BMI 35.2; BMI 35.5
--- NOTE | 2022-04-27 12:22 | DI.RAD.S_ITS ---
PROCEDURE: XR CHEST 1V INDICATIONS: chest pain TECHNIQUE: One view of the chest was acquired. COMPARISON: [facility], CR, XR CHEST 1V, 10/09/2019, 17:49. FINDINGS: Surgical changes and devices: None. Lungs and pleura: Lungs are clear. No pleural effusions or pneumothorax. Mediastinum: Mediastinal contours appear normal. Heart size is normal. Bones and chest wall: No suspicious bony lesions. Overlying soft tissues appear unremarkable. IMPRESSION: No acute cardiopulmonary findings Approved by: Cuco Bains M.D. on 04/27/2022 at 12:22
[2022-04-27] MEDS: ASPIRIN 81 MG CHEW TAB 324 MG PO (12:24)
[2022-04-27 12:33] LABS: Add Manual Diff / Slide Review NO; Basophils Absolute Auto 0 /uL (0-100); Basophils Percent Auto 0.5 % (0-2); Eosinophils Absolute Auto 100 /uL (0-450); Eosinophils Percent Auto 2.2 % (2-4); Hemoglobin 13.3 g/dL (12.0-16.0); Lymphocytes Absolute Auto 2400 /uL (1100-4500); Lymphocytes Percent Auto 37.9 % (25-40); Mean Corpuscular HGB Conc 32.5 % (30-36); Mean Corpuscular Hemoglobin 28.7 PG (26-34); Mean Corpuscular Volume 88.2 fL (80-100); Monocytes Absolute Auto 400 /uL (0-900); Neutrophils Absolute Auto 3300 /uL (1500-7000); Neutrophils Percent Auto 53.4 % (50-75); Platelet Count 243 X10^3/uL (150-400); Red Blood Cell Count 4.65 X10^6/uL (4.0-5.2); Red Cell Distribution Width 15.3 % (11.6-14.8); White Blood Cell Count 6.3 X10^3/uL (4.5-11.0)
[2022-04-27 12:40] LABS: INR 1.1 (0.9-1.3); Prothrombin Time 12.3 SECONDS (10.1-12.7)
[2022-04-27 12:43] LABS: PTT Partial Thromboplastin Tim 41 SECONDS (26-36)
[2022-04-27 12:46] LABS: Alanine Aminotransferase 30 IU/L (<35); Albumin 4.6 g/dL (3.5-5.0); Albumin Globulin Ratio 1.3 (1.0-2.8); Alkaline Phosphatase 75 U/L (38-126); Aspartate Aminotransferase 36 IU/L (14-36); BUN Creatinine Ratio 17.5 (6-22); Bilirubin Total 0.7 mg/dL (0.2-1.3); Blood Urea Nitrogen 10 mg/dL (7-17); Calcium 9.2 mg/dL (8.4-10.2); Carbon Dioxide 26 mmol/L (22-32); Chloride 108 mmol/L (98-107); Creatine Kinase 155 U/L (30-135); Estimated Glomerular Filt Rate > 60 mL/min (>60); Globulin 3.6 g/dL (1.7-4.1); Glucose 84 mg/dL (70-100); HEMOLYSIS < 15 (0-50); Lipase 80 U/L (23-300); Magnesium 1.9 mg/dL (1.6-2.3); Potassium 3.5 mmol/L (3.4-5.1); Sodium 142 mmol/L (137-145); Total Protein 8.2 g/dL (6.3-8.2)
[2022-04-27 12:56] LABS: Troponin I < 0.012 ng/mL (0.01-0.034)
[2022-04-27 13:01] LABS: CKMB % Relative Index 0.5 % (1.5-5.0); Creatine Kinase MB 0.79 ng/mL (<2.37)
[2022-04-27 13:11] LABS: Bacteria Urine Many (>30); Culture Indicated Urine Specimen Cultured; RBC Urine 5-10/HPF (0-5/HPF); Squamous Epithelial Cell Urine >30 /HPF (0-5/HPF); WBC Urine 30-100/HPF (0-5/HPF)
[2022-04-27 15:43] LABS: Troponin I < 0.012 ng/mL (0.01-0.034)
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
--- NOTE | 2022-04-27 16:10 | DI.CT.S_ITS ---
PROCEDURE: CT ANGIO CHEST ABDOMEN PELVIS INDICATIONS: HTN with chest pain TECHNIQUE: Precontrast 5 mm thick sections acquired from the lung apices to the iliac crests. After the administration of intravenous contrast, 2.5 mm thick sections again acquired from the lung apices to the iliac crests. Maximum intensity projection (MIP) oblique sagittal and coronal reformats were then acquired. For radiation dose reduction, the following was used: automated exposure control. COMPARISON: None. FINDINGS: Chest: Cardiovascular: Heart size is normal. No evidence of pulmonary embolism, aortic aneurysm or dissection. Lungs and pleural spaces: The lung vogel are clear without nodule, infiltrate or interstitial prominence. Pleural spaces show no effusion or pneumothorax. Lymph nodes: No mediastinal, hilar or axillary adenopathy. Mediastinum: Unremarkable. No hiatal hernia. Thyroid within normal limits. Chest Wall and Bones: Unremarkable. No acute fracture. Abdomen and Pelvis: Liver: Normal in size and attenuation. No contour deformity present. Biliary system: No calcified cholelithiasis or pericholecystic inflammation. No intra or extrahepatic bile duct dilatation. Pancreas: Unremarkable without mass or inflammation evident. Spleen: Normal in size and density. Adrenals: Normal morphology and density. Reproductive system: Unremarkable as visualized. Urinary system: Normal renal size and attenuation. No renal calculi, hydronephrosis, or solid mass present. Urinary bladder unremarkable. Gastrointestinal system: The bowel is unremarkable with no evidence of bowel obstruction or inflammation. The stomach appears unremarkable. Multiple diverticula arise from the right colon without evidence of diverticulitis. Appendix: Appendectomy Lymph nodes: No mesenteric or retroperitoneal adenopathy. Peritoneal spaces: No free air. No free fluid. Vasculature: The IVC, aorta and iliac vasculature are unremarkable. Abdominal wall: Small periumbilical ventral hernia contains fat bowel involvement Musculoskeletal: Normal bone mineralization. No acute fractures. IMPRESSION: 1. Unremarkable CT angiogram chest abdomen and pelvis without evidence of aortic dissection or aneurysm. 2. Incidental right-sided colonic diverticulosis without evidence of diverticulitis Approved by: Cuco Bains M.D. on 04/27/2022 at 16:39
[2022-04-27] MEDS: lisinopriL 20 MG TABLET PO (16:20)
[2022-04-27 17:12] LABS: COVID19 -Nasal RAPID Negative (Negative)
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
[2022-04-27 20:18] LABS: Hemoglobin A1C% w Est Avg Glu 5.6 % (4.0-6.0)
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
[2022-04-27 20:46] LABS: Thyroid Stimulating Hormone 0.718 uIU/mL (0.47-4.68)
[2022-04-27] MEDS: SODIUM CHLORIDE 0.9% FLUSH 10 ML IV ×2 (20:51→22:23)
[2022-04-27] MEDS: levoFLOXacin 750 MG/150 ML PIGGYBACK 100 MG IV (20:51)
[2022-04-27] MEDS: ACETAMINOPHEN 325 MG TABLET 650 MG PO (22:25)
[2022-04-27 22:32] LABS: Troponin I < 0.012 ng/mL (0.01-0.034)
--- NOTE | 2022-04-27 22:46 | PC.NURSE ---
Patient is alert and oriented. Breath sounds CTA with RA sat of 99%. HRR w/telemetry reading of SR. Does report feeling dizzy when up to bathroom. BP elevated at 147/73 which has improved from when in ER. Does complain of a headache and medicated with Tylenol and provided ice pack. Complains of slight nausea but declined antiemetic. BT present and abdomen is soft. Admits to burning w/urination, frequency and urgency; given 1 dose of IV antibiotics for possible UTI per UA sent by ER. Is independent with bed mobility. Instructed to have SBA when out of bed related to dizziness. Denies chest pain. Fall risk score is moderate. Family rooming in. Oriented to call light and bed controls upon admission.
[2022-04-28 04:05] VITALS: BP 109/59; PULSE 66; RESP 18; TEMP 35.8; O2SAT 100
[2022-04-28 05:45] LABS: Add Manual Diff / Slide Review NO; Basophils Absolute Auto 0 /uL (0-100); Basophils Percent Auto 0.3 % (0-2); Eosinophils Absolute Auto 200 /uL (0-450); Eosinophils Percent Auto 3.3 % (2-4); Hematocrit 38.5 % (36-46); Hemoglobin 12.8 g/dL (12.0-16.0); Lymphocytes Absolute Auto 2000 /uL (1100-4500); Lymphocytes Percent Auto 38.9 % (25-40); Mean Corpuscular HGB Conc 33.3 % (30-36); Mean Corpuscular Hemoglobin 29.2 PG (26-34); Mean Corpuscular Volume 87.8 fL (80-100); Monocytes Absolute Auto 400 /uL (0-900); Monocytes Percent Auto 8.7 % (3-14); Neutrophils Absolute Auto 2400 /uL (1500-7000); Neutrophils Percent Auto 48.8 % (50-75); Platelet Count 214 X10^3/uL (150-400); Red Blood Cell Count 4.39 X10^6/uL (4.0-5.2); Red Cell Distribution Width 15.3 % (11.6-14.8)
[2022-04-28 05:57] LABS: Alanine Aminotransferase 26 IU/L (<35); Albumin 4.1 g/dL (3.5-5.0); Albumin Globulin Ratio 1.2 (1.0-2.8); Alkaline Phosphatase 68 U/L (38-126); Aspartate Aminotransferase 28 IU/L (14-36); BUN Creatinine Ratio 23.7 (6-22); Bilirubin Total 0.6 mg/dL (0.2-1.3); Blood Urea Nitrogen 14 mg/dL (7-17); Calcium 8.6 mg/dL (8.4-10.2); Carbon Dioxide 25 mmol/L (22-32); Chloride 106 mmol/L (98-107); Estimated Glomerular Filt Rate > 60 mL/min (>60); Globulin 3.3 g/dL (1.7-4.1); Glucose 83 mg/dL (70-100); HEMOLYSIS < 15 (0-50); Magnesium 1.9 mg/dL (1.6-2.3); Potassium 3.8 mmol/L (3.4-5.1); Sodium 141 mmol/L (137-145); Total Protein 7.4 g/dL (6.3-8.2)
[2022-04-28 06:00] LABS: Cholesterol 166 mg/dL (140-199); HDL Cholesterol 54 mg/dL (40-60); LDL Cholesterol Calculated 97 mg/dL (<100); Triglycerides 75 mg/dL (35-150)
[2022-04-28] MEDS: levoFLOXacin 250 MG TABLET 750 MG PO (06:30)
[2022-04-28] MEDS: SODIUM CHLORIDE 0.9% FLUSH 10 ML IV ×2 (07:19→09:09)
[2022-04-28] MEDS: ONDANSETRON 4 MG/2 ML INJ IV (07:19)
[2022-04-28 09:00] VITALS: BP 124/67; PULSE 80; RESP 17; TEMP 36.5; O2SAT 100
[2022-04-28] MEDS: lisinopriL 20 MG TABLET PO (09:08)
[2022-04-28] MEDS: ENOXAPARIN 40 MG/0.4 ML SYRINGE SUBCUT (09:08)
[2022-04-28] MEDS: ASPIRIN EC 81 MG TABLET PO (09:08)
--- NOTE | 2022-04-28 09:46 | PC.NURSE ---
Patient is doing well this am. She was nauseated at the beginning of the shift and was given zofran, this was helpful to her. She denies pain. Blood pressure 120s/70s. Lisinopril, baby aspirin, and lovenox given to patient. She would like to have her flu injection a bit later. When patient discharges home, she will be going back to her home and states that she is going to a safe environment. Her daughter and son in law stayed last night with patient here. They are supportive and helpful to patient. Discharge planning went in and talked with her. Daughter stepped out of room and will be back shortly. Patient has an echo ordered for today and then may be doing an outpatient stress test at a later time.
--- NOTE | 2022-04-28 09:56 | DI.ECHO.S_ITS ---
Interpretation Summary The left ventricle is normal in size and wall thickness. Left ventricular systolic function appears normal without focal wall motion abnormalities. The ejection fraction is estimated to be 55-60%. Diastolic parameters suggest a relaxation abnormality of the left ventricle, consistent with probable normal filling pressures. The right ventricle is normal in size and function. The right ventricular systolic pressure is estimated to be at least 30 mmHg based on an estimated right atrial pressure of 3 mm Hg. The left atrial size is normal. Right atrial size is normal. There is no significant valvular heart disease. The aortic root is normal size. Procedure: A two-dimensional transthoracic echocardiogram with color flow and Doppler was performed. The study quality was technically difficult. Comparison is made with the echocardiogram of 03/07/2019. A contrast injection of Definity was performed to improve assessment of LV function. The patient was in sinus rhythm with heart rates between 68-81 bpm during the exam. Left Ventricle: The left ventricle is normal in size and wall thickness. Left ventricular systolic function appears normal without focal wall motion abnormalities. The ejection fraction is estimated to be 55-60%. Diastolic parameters suggest a relaxation abnormality of the left ventricle, consistent with probable normal filling pressures. Right Ventricle: The right ventricle is normal in size and function. Atria: The left atrial size is normal. Right atrial size is normal. There is no Doppler evidence for an interatrial shunt. Mitral Valve: The mitral valve is normal in structure and function. There is trace mitral regurgitation. Aortic Valve: The aortic valve is grossly normal. The aortic valve opens well. There is no aortic valve stenosis. No aortic regurgitation is present. Tricuspid Valve: The tricuspid valve is normal in structure and function. There is trace tricuspid regurgitation. The right ventricular systolic pressure is estimated to be at least 30 mmHg based on an estimated right atrial pressure of 3 mm Hg. Pulmonic Valve: The pulmonic valve is not well seen, but is grossly normal. There is no pulmonic valvular regurgitation. There is no significant valvular heart disease. Great Vessels: The aortic root is normal size. The dimensions of the ascending aorta are normal. The IVC is of normal diameter and collapses greater than 50% with a sniff. This suggests a low right atrial pressure of 3 mm Hg. Pericardium/ Pleura There is no pericardial effusion. There is no pleural effusion. MMode/2D Measurements & Calculations LVIDd: 4.4 cm LVOT diam: 2.0 cm LVIDs: 2.9 cm Ao root diam: 3.1 cm FS: 35.0 % asc Aorta Diam: 3.1 cm EPSS: 1.1 cm Ao Arch Diam (Prox Trans): 2.5 cm IVSd: 0.66 cm LVPWd: 0.88 cm LV park. diameter/BSA (cm/m^2): 2.5 LV sys. diameter/BSA (cm/m^2): 1.6 LA A2 area: 14.5 cm2 RA long axis: 4.3 cm LA A4 area: 10.3 cm2 RA area: 12.2 cm2 LA length (vol): 4.1 cm RA vol: 29.3 ml LA vol: 31.4 ml RA : 16.4 ml/m2 LA vol index: 17.6 ml/m2 IVC diam: 1.5 cm RVD1 (basal): 3.8 cm TAPSE: 2.6 cm Doppler Measurements & Calculations Ao V2 max: 149.6 cm/sec LVOT Max Augustine: 109.8 cm/sec Ao V2 mean: 89.2 cm/sec LV V1 max P.8 mmHg Ao max P.9 mmHg LV V1 VTI: 20.5 cm Ao mean P.7 mmHg W[place](I,D): 2.6 cm2 Ao V2 VTI: 25.2 cm [place](V,D): 2.3 cm2 sev ratio: 0.81 [place] indexed to BSA (cm^2/m^2): 1.4 MV E max augustine: 51.3 cm/sec TR max augustine: 259.8 cm/sec MV A max augustine: 93.9 cm/sec TR max P.0 mmHg MV E/A: 0.55 PA V2 max: 114.4 cm/sec Med Peak E' Augustine: 6.0 cm/sec PA V2 mean: 75.5 cm/sec E/E' med: 8.6 PA mean P.6 mmHg Lat Peak E' Augustine: 8.4 cm/sec PA pr(Accel): 24.2 mmHg E/E' lat: 6.1 E/e' average: 7.3 MV dec time: 0.23 sec SV(LVOT): 64.7 ml Reading Physician:12:56 PM
--- NOTE | 2022-04-28 11:35 | P.PN_ITS ---
Subjective Subjective Date Patient Seen: 04/28/22 Exam Vital Signs (past 8 hours): - 04/28/22 04:05 04/28/22 09:00 Temperature 96.4 F L 97.7 F Pulse Rate 66 80 Respiratory Rate 18 17 Blood Pressure 109/59 L 124/67 Pulse Oximetry 100 100 Oxygen Flow Rate 0 Oxygen Delivery Method Room Air Oxygen Flow Rate 0 Objective Labs Result Diagrams: 04/28/22 04:32 04/28/22 04:32 Labs: Laboratory Results - last 24 hr 04/27/22 04/27/22 04/27/22 12:25 12:25 12:25 WBC 6.3 RBC 4.65 Hgb 13.3 Hct 41.0 MCV 88.2 MCH 28.7 MCHC 32.5 RDW 15.3 H Plt Count 243 Neut % (Auto) 53.4 Lymph % (Auto) 37.9 [place] % (Auto) 6.0 Eos % (Auto) 2.2 Baso % (Auto) 0.5 Neut # (Auto) 3300 Lymph # (Auto) 2400 [place] # (Auto) 400 Eos # (Auto) 100 Baso # (Auto) 0 PT 12.3 INR 1.1 APTT 41 H Sodium 142 Potassium 3.5 Chloride 108 H Carbon Dioxide 26 BUN 10 Creatinine 0.57 Estimated GFR > 60 BUN/Creatinine Ratio 17.5 Glucose 84 Hemoglobin A1c Calcium 9.2 Magnesium 1.9 Total Bilirubin 0.7 AST 36 ALT 30 Alkaline Phosphatase 75 Total Creatine Kinase 155 H CK-MB (CK-2) 0.79 CK-MB (CK-2) Rel Index 0.5 L Troponin I < 0.012 Total Protein 8.2 Albumin 4.6 Globulin 3.6 Albumin/Globulin Ratio 1.3 Triglycerides Cholesterol LDL Cholesterol, Calc HDL Cholesterol Lipase 80 TSH Urine RBC Urine WBC Ur Squamous Epith Cells Urine Bacteria Ur Culture Indicated? SARS-CoV-2 (PCR) 04/27/22 04/27/22 04/27/22 12:27 12:27 12:44 WBC RBC Hgb Hct MCV MCH MCHC RDW Plt Count Neut % (Auto) Lymph % (Auto) [place] % (Auto) Eos % (Auto) Baso % (Auto) Neut # (Auto) Lymph # (Auto) [place] # (Auto) Eos # (Auto) Baso # (Auto) PT INR APTT Sodium Potassium Chloride Carbon Dioxide BUN Creatinine Estimated GFR BUN/Creatinine Ratio Glucose Hemoglobin A1c 5.6 Calcium Magnesium Total Bilirubin AST ALT Alkaline Phosphatase Total Creatine Kinase CK-MB (CK-2) CK-MB (CK-2) Rel Index Troponin I Total Protein Albumin Globulin Albumin/Globulin Ratio Triglycerides Cholesterol LDL Cholesterol, Calc HDL Cholesterol Lipase TSH 0.718 Urine RBC 5-10/hpf H Urine WBC 30-100/hpf H Ur Squamous Epith Cells >30 /hpf H Urine Bacteria Many (>30) H Ur Culture Indicated? Specimen cultured SARS-CoV-2 (PCR) 04/27/22 04/27/22 04/27/22 15:05 16:40 21:50 WBC RBC Hgb Hct MCV MCH MCHC RDW Plt Count Neut % (Auto) Lymph % (Auto) [place] % (Auto) Eos % (Auto) Baso % (Auto) Neut # (Auto) Lymph # (Auto) [place] # (Auto) Eos # (Auto) Baso # (Auto) PT INR APTT Sodium Potassium Chloride Carbon Dioxide BUN Creatinine Estimated GFR BUN/Creatinine Ratio Glucose Hemoglobin A1c Calcium Magnesium Total Bilirubin AST ALT Alkaline Phosphatase Total Creatine Kinase CK-MB (CK-2) CK-MB (CK-2) Rel Index Troponin I < 0.012 < 0.012 Total Protein Albumin Globulin Albumin/Globulin Ratio Triglycerides Cholesterol LDL Cholesterol, Calc HDL Cholesterol Lipase TSH Urine RBC Urine WBC Ur Squamous Epith Cells Urine Bacteria Ur Culture Indicated? SARS-CoV-2 (PCR) Negative 04/28/22 04/28/22 04/28/22 04:32 04:32 04:32 WBC 5.0 RBC 4.39 Hgb 12.8 Hct 38.5 MCV 87.8 MCH 29.2 MCHC 33.3 RDW 15.3 H Plt Count 214 Neut % (Auto) 48.8 L Lymph % (Auto) 38.9 [place] % (Auto) 8.7 Eos % (Auto) 3.3 Baso % (Auto) 0.3 Neut # (Auto) 2400 Lymph # (Auto) 2000 [place] # (Auto) 400 Eos # (Auto) 200 Baso # (Auto) 0 PT INR APTT Sodium 141 Potassium 3.8 Chloride 106 Carbon Dioxide 25 BUN 14 Creatinine 0.59 Estimated GFR > 60 BUN/Creatinine Ratio 23.7 H Glucose 83 Hemoglobin A1c Calcium 8.6 Magnesium 1.9 Total Bilirubin 0.6 AST 28 ALT 26 Alkaline Phosphatase 68 Total Creatine Kinase CK-MB (CK-2) CK-MB (CK-2) Rel Index Troponin I Total Protein 7.4 Albumin 4.1 Globulin 3.3 Albumin/Globulin Ratio 1.2 Triglycerides 75 Cholesterol 166 LDL Cholesterol, Calc 97 HDL Cholesterol 54 Lipase TSH Urine RBC Urine WBC Ur Squamous Epith Cells Urine Bacteria Ur Culture Indicated? SARS-CoV-2 (PCR) [facility] Medical History Hypertension Surgical History Hx of cardiac catheterization Family History Mother Diabetes mellitus Brother Myocardial infarction Hx of arterial ischemic stroke Diabetes mellitus Father Heart disease Social History household members: spouse and children Smoking Status: Never smoker alcohol intake: never Assessment & Plan Assessment & Plan narrative: Chest pain r/o ACS, acute, present on admission ? Echo in am ? Outpatient stress test per consultation between ED and Dr. Guevara, [facility] ? Resume ASA 81 mg, she was administered a one-time dose in the ED ? Troponin X 3 have all been negative Hypertension ? Start/continue lisinopril 20 mg daily HLD ? Lipid panel, pending ? Start/continue atorvastatin 40 mg po at bedtime Risk stratification ? Fasting lipid panel scheduled for 0500 labs ? A1c 5.6% Other independent historians: none Discussion of results, plan of care with independent HCP/other day team hospitalist Reviewed outside records: ordered VTE Prophylaxis: Wells risk score 0 X Enoxaparin 40 mg subQ once daily X Bilateral SCDs Patient is admitted to the inpatient service due to the severity of disease, risks of further disease progression and this stay is expected to exceed 2 midnights. FEN: IV fluids: saline lock, diet: heart healthy 2 gram sodium diet, labs: CBC, C/BMP, liver enzymes, Mag, PT/INR Consultants? None Dispo: probable d/c to home w/outpatient follow-up Code status: full code as discussed with the patient who identifies her daughter, Candice as her surrogate and POA. Time Spent With Patient Critical Care time: I spent a total of [] minutes of critical care time on this patient's care today; this time is exclusive of procedural time.
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
[2022-04-28 13:00] VITALS: BP 127/71; PULSE 77; RESP 18; TEMP 36.2; O2SAT 100
--- NOTE | 2022-04-28 14:34 | P.DS_ITS ---
History of Present Illness History of Present Illness Chief complaint: Chest pain, hypertensive urgency Discharge Providers Provider Date of admission: 04/27/22 18:07 Discharge Date: 04/28/22 Primary care physician: ANGELITO Pillai Consults: 04/27/22 15:59 Consult to [facility] [place] - Cellophane Worker Stat Comment: Discharge provider: Светлана Albert MD Summary Hospital Course Hospital Course: Chest pain r/o ACS, acute, present on admission ? Echo is normal ? Outpatient stress test per consultation between ED and [facility] ? Resume ASA 81 mg, she was administered a one-time dose in the ED ? Troponin X 3 have all been negative Resume Spironolactone and Lisinpril from previous Cardiology notes Follow-up with Dr. Nalini Pearl and Dr. Mercedes Walton for primary care and Cardiology. She will need consideration of outpatient cardiac scan. Hypertension ? Resume Spironolactone 100 mg(K is 3.8) and Lisinopril 20 mg BID per cardiology plans Follow up with PCP for electrolye monitoring soon HLD ? Lipitor per cardiology followup UTI -UA abnormal with WBC 30-100 low for 2nd come back -culture pending -Received Levofloxacin X 1, complete 5 days of Macrobid outpatient, in case UC is positive Risk stratification ? Lipids still pending at time of discharge ? A1c 5.6% Code status: full code as discussed with the patient who identifies her daughterCandice as her surrogate and POA. Status at Discharge Cognitive/behavioral status at discharge: oriented and calm Functional status at discharge: independent ambulation Overall status at discharge: patient is back to baseline Exam Vital Signs (past 8 hours): - 04/28/22 09:00 04/28/22 13:00 Temperature 97.7 F 97.2 F L Pulse Rate 80 77 Respiratory Rate 17 18 Blood Pressure 124/67 127/71 Pulse Oximetry 100 100 Oxygen Flow Rate 0 0 Oxygen Delivery Method Room Air Oxygen Flow Rate 0 Narrative Exam Narrative: She is alert and oriented x3. No apparent distress Heart is regular rate and rhythm without murmur Lungs are clear to auscultation bilaterally Extremities have no ankle edema Objective Labs Result Diagrams: 04/28/22 04:32 04/28/22 04:32 Labs: Laboratory Results - last 24 hr 04/27/22 04/27/22 04/27/22 12:27 12:27 15:05 WBC RBC Hgb Hct MCV MCH MCHC RDW Plt Count Neut % (Auto) Lymph % (Auto) [place] % (Auto) Eos % (Auto) Baso % (Auto) Neut # (Auto) Lymph # (Auto) [place] # (Auto) Eos # (Auto) Baso # (Auto) Sodium Potassium Chloride Carbon Dioxide BUN Creatinine Estimated GFR BUN/Creatinine Ratio Glucose Hemoglobin A1c 5.6 Calcium Magnesium Total Bilirubin AST ALT Alkaline Phosphatase Troponin I < 0.012 Total Protein Albumin Globulin Albumin/Globulin Ratio Triglycerides Cholesterol LDL Cholesterol, Calc HDL Cholesterol TSH 0.718 SARS-CoV-2 (PCR) 04/27/22 04/27/22 04/28/22 16:40 21:50 04:32 WBC 5.0 RBC 4.39 Hgb 12.8 Hct 38.5 MCV 87.8 MCH 29.2 MCHC 33.3 RDW 15.3 H Plt Count 214 Neut % (Auto) 48.8 L Lymph % (Auto) 38.9 [place] % (Auto) 8.7 Eos % (Auto) 3.3 Baso % (Auto) 0.3 Neut # (Auto) 2400 Lymph # (Auto) 2000 [place] # (Auto) 400 Eos # (Auto) 200 Baso # (Auto) 0 Sodium Potassium Chloride Carbon Dioxide BUN Creatinine Estimated GFR BUN/Creatinine Ratio Glucose Hemoglobin A1c Calcium Magnesium Total Bilirubin AST ALT Alkaline Phosphatase Troponin I < 0.012 Total Protein Albumin Globulin Albumin/Globulin Ratio Triglycerides Cholesterol LDL Cholesterol, Calc HDL Cholesterol TSH SARS-CoV-2 (PCR) Negative 04/28/22 04/28/22 04:32 04:32 WBC RBC Hgb Hct MCV MCH MCHC RDW Plt Count Neut % (Auto) Lymph % (Auto) [place] % (Auto) Eos % (Auto) Baso % (Auto) Neut # (Auto) Lymph # (Auto) [place] # (Auto) Eos # (Auto) Baso # (Auto) Sodium 141 Potassium 3.8 Chloride 106 Carbon Dioxide 25 BUN 14 Creatinine 0.59 Estimated GFR > 60 BUN/Creatinine Ratio 23.7 H Glucose 83 Hemoglobin A1c Calcium 8.6 Magnesium 1.9 Total Bilirubin 0.6 AST 28 ALT 26 Alkaline Phosphatase 68 Troponin I Total Protein 7.4 Albumin 4.1 Globulin 3.3 Albumin/Globulin Ratio 1.2 Triglycerides 75 Cholesterol 166 LDL Cholesterol, Calc 97 HDL Cholesterol 54 TSH SARS-CoV-2 (PCR) PFSH Medical History Hypertension Surgical History Hx of cardiac catheterization Family History Mother Diabetes mellitus Brother Myocardial infarction Hx of arterial ischemic stroke Diabetes mellitus Father Heart disease Social History household members: spouse and children Smoking Status: Never smoker alcohol intake: never Discharge Plan Discharge Plan Patient Disposition: Home Discharge orders & Medications Prescriptions: New lisinopril 20 mg Tablet 20 mg PO BID Qty: 60 0RF aspirin 81 mg Tablet,Delayed Release (Dr/Ec) 81 mg PO DAILY Qty: 30 0RF nitrofurantoin monohyd/m-cryst [Macrobid] 100 mg capsule 100 mg PO Q12H 5 Days Qty: 10 0RF Rx Instructions: must administer with a meal/food spironolactone 100 mg tablet 100 mg PO DAILY Qty: 30 0RF Continued nitroglycerin 0.4 mg tablet, sublingual 0.4 mg sublingual PRN PRN (Reason: Chest Pain) Label Comments: Place 1 tablet under tongue every five minutes for up to three doses, for chest pain. If no relief call 911. Discontinued ondansetron 4 mg tablet,disintegrating 4 mg PO Q6H PRN (Reason: nausea and vomiting) Qty: 14 0RF metoclopramide HCl 10 mg tablet,disintegrating 10 mg PO Q6H Qty: 10 0RF doxycycline hyclate 100 mg tablet 100 mg PO BID Qty: 20 0RF lisinopril 10 mg Tablet 10 mg PO BID Follow up/Referrals: Love Pearl FNP-C [Primary Care Provider] - Mercedes Walton MD [Physician] - Diet/Activity/Treatments Diet: Low-cholesterol Visit Report/Discharge Packet Instructions: High Blood Pressure, DI for Chest Pain Stand Alone Forms: Patient Portal/API, Stroke Signs & Symptoms Discharge Data Primary Care Provider: Love Pearl Attending Provider: Amaris Reeder
[2022-04-28] MEDS: INFLUENZA VACCINE QIV 0.5 ML SYRINGE IM (15:03)
--- NOTE | 2022-04-28 15:45 | PC.NURSE ---
Discharge instructions and home care handouts reviewed with patient and her children at bedside. She states understanding and has no further questions or concerns at this time. IV was dc'd intact. Patient states she will call her PCP and customer support executive's offices tomorrow (Friday when open) to schedule her follow up appointments for in 1 week. Patient escorted out via wheelchair with all her belongings. Patient instructed to call MD with questions or concerns, or to seek medical care for new or worsening symptoms.
== END 2022-04-28 15:48 | disposition home or self-care (01) ==
LOC: ED 17:45 → AC 18:08
PROVIDERS: Nurse Practitioner Family; Admitting Provider Neuromusculoskeletal Medicine, Sports Medicine; Emergency Provider Emergency Medicine; PCP Registered Nurse; Referring Provider Emergency Medicine; Visit Provider Neuromusculoskeletal Medicine, Sports Medicine
DX: R07.9 Chest pain, unspecified (principal); R10.10 Upper abdominal pain, unspecified; R06.02 Shortness of breath; I10 Essential (primary) hypertension; E78.5 Hyperlipidemia, unspecified; N39.0 Urinary tract infection, site not specified; Z20.822 Contact with and (suspected) exposure to COVID-19
CPT/HCPCS: 36415; 71045; 71275; 74174; 80053; 80061; 81003; 81015; 82550; 82553; 83036; 83690; 83735; 84443; 84484; 85025; 85610; 85730; 87086; 87635; 90471; 90656; 93005; 93010; 93306; 96365; 96366; 96372; 96375; 99284; C9803; G0378; J1650; J1956; J2405; Q2038; Q9967

== ENCOUNTER 2024-10-16 13:22 | Emergency (ER) | payer OTHER, SELFPAY ==
[2022-04-27 19:20] VITALS: BMI 35.5
[2024-10-16] VITALS (14 sets, daily range): BP systolic 140–211; BP diastolic 65–101; PULSE 55–75; RESP 14–23; O2SAT 98–100; BMI 33.2
--- NOTE | 2024-10-16 13:35 | DI.RAD.S_ITS ---
PROCEDURE: XR CHEST 1V INDICATIONS: chest pain TECHNIQUE: One view of the chest was acquired. COMPARISON: [facility], CR, XR CHEST 1V, 04/27/2022, 12:46. [facility], CR, XR CHEST 1V, 10/09/2019, 17:49. FINDINGS AND IMPRESSION: On this single view study, no airspace consolidation or pleural effusion. Normal heart size. Mild degenerative osseous changes. Dictated by: Jerry Shi M.D. on 10/16/2024 at 13:29 Approved by: Jerry Shi M.D. on 10/16/2024 at 13:30
--- NOTE | 2024-10-16 13:35 | EKG_ITS ---
[address] [address] Test Date: 2024-10-16 Pat Name: Sakina Schmidt Department: Room: Gender: Female Trading Specialist: SAMRA : 1970 Requested By: Order Number: [id number] Reading MD: Morgan Bush MD Measurements Intervals [place] Rate: 65 P: 42 RI: 134 QRS: 37 QRSD: 86 T: 66 QT: 358 QTc: 372 Interpretive Statements Normal sinus rhythm Low voltage QRS Nonspecific T wave abnormality Electronically Signed On 10-17-2024 9:11:02 PDT by Morgan Bush MD
[2024-10-16 13:53] LABS: Add Manual Diff / Slide Review NO; Basophils Absolute Auto 0 /uL (0-100); Basophils Percent Auto 0.5 % (0-2); Eosinophils Absolute Auto 100 /uL (0-450); Eosinophils Percent Auto 1.4 % (2-4); Hematocrit 41.5 % (36-46); Hemoglobin 14.2 g/dL (12.0-16.0); Lymphocytes Absolute Auto 2200 /uL (1100-4500); Lymphocytes Percent Auto 40.8 % (25-40); Mean Corpuscular HGB Conc 34.1 % (30-36); Mean Corpuscular Hemoglobin 30.8 PG (26-34); Mean Corpuscular Volume 90.3 fL (80-100); Monocytes Absolute Auto 300 /uL (0-900); Monocytes Percent Auto 5.5 % (3-14); Neutrophils Absolute Auto 2800 /uL (1500-7000); Neutrophils Percent Auto 51.8 % (50-75); Platelet Count 231 X10^3/uL (150-400); Red Blood Cell Count 4.59 X10^6/uL (4.0-5.2); Red Cell Distribution Width 14.6 % (11.6-14.8); White Blood Cell Count 5.5 X10^3/uL (4.5-11.0)
[2024-10-16 14:11] LABS: Alanine Aminotransferase 21 IU/L (<35); Albumin 4.7 g/dL (3.5-5.0); Albumin Globulin Ratio 1.3 (1.0-2.8); Alkaline Phosphatase 83 U/L (38-126); Aspartate Aminotransferase 34 IU/L (14-36); BUN Creatinine Ratio 22.2 (6-22); Bilirubin Total 0.7 mg/dL (0.2-1.3); Blood Urea Nitrogen 14 mg/dL (7-17); Calcium 9.2 mg/dL (8.4-10.2); Carbon Dioxide 22 mmol/L (22-32); Chloride 108 mmol/L (98-107); Estimated Glomerular Filt Rate > 60 mL/min (>60); Globulin 3.5 g/dL (1.7-4.1); Glucose 82 mg/dL (70-99); HEMOLYSIS 18 (0-50); Lipase 71 U/L (23-300); Magnesium 1.9 mg/dL (1.6-2.3); Potassium 3.7 mmol/L (3.4-5.1); Sodium 141 mmol/L (137-145); Total Protein 8.2 g/dL (6.3-8.2)
[2024-10-16 14:23] LABS: Troponin I < 0.012 ng/mL (0.01-0.034)
[2024-10-16 15:39] LABS: Appearance Urine UA CLOUDY; Bilirubin Urine UA NEGATIVE (NEGATIVE); Color Urine UA YELLOW; Glucose Urine UA NEGATIVE (Negative); Ketones Urine UA 1+ (NEGATIVE); Leukocyte Esterase Urine UA 3+ (NEGATIVE); Nitrite Urine UA POSITIVE (Negative); Occult Blood Urine UA 2+ (Negative); Protein Urine UA TRACE (Negative); Specific Gravity Urine UA 1.015 (1.000-1.035); Urobilinogen Urine UA 0.2 E.U./dL (0.2)
[2024-10-16 16:05] LABS: Urine Volume 10mL (spun)
[2024-10-16 16:10] LABS: Bacteria Urine Many (>30); RBC Urine 1-5/HPF (0-5/HPF); Squamous Epithelial Cell Urine None Seen (0-5/HPF); WBC Urine 30-100/HPF (0-5/HPF)
[2024-10-16 16:11] LABS: Culture Indicated Urine Specimen Cultured
[2024-10-16] MEDS: ACETAMINOPHEN 325 MG TABLET 975 MG PO (16:18)
[2024-10-16] MEDS: KETOROLAC 30 MG/ML VIAL 15 MG IV (16:18)
[2024-10-16 16:57] LABS: Troponin I < 0.012 ng/mL (0.01-0.034)
--- NOTE | 2024-10-16 17:01 | PC.NURSE ---
Pt denies chest pain. Reports that she continues to have headche 05/31
--- NOTE | 2024-10-16 17:39 | ED.CHESTPAIN ---
HPI - Chest Pain General Chief Complaint: Chest Pain Stated Complaint: Chest Pain, Dizzyness Time Seen by Provider: 10/16/24 13:28 Source: patient Mode of arrival: Ambulatory History of Present Illness HPI narrative: 54-year-old woman with a history of hypertension and hyperlipidemia presents with complaints of chest pain last night lasted approximately 15 minutes associated with diaphoresis centered over the midportion of her chest radiating to her jaw. She then was noticing pain between her shoulder blades. This continued over the course of the evening ongoing for greater than 24 hours at this point. She has never had similar pain she notes that her brother at the age of 46 from myocardial infarction. She reports as she has occasional palpitations has not been having significant exertional dyspnea, no nausea or vomiting. At this point the pain persists in the center portion of her chest but is slightly improved. Pressing in the center portion of chest does reproduce her pain Related Data Home Medications ?Medication ?Instructions ?Recorded ?Confirmed nitroglycerin 0.4 mg sublingual 0.4 mg sublingual PRN PRN Chest 04/27/22 04/27/22 tablet Pain Previous Rx's ?Medication ?Instructions ?Recorded aspirin 81 mg tablet,delayed 81 mg PO DAILY #30 tabs 04/28/22 release lisinopril 20 mg tablet 20 mg PO BID #60 tabs 04/28/22 spironolactone 100 mg tablet 100 mg PO DAILY #30 tabs 04/28/22 Allergies Allergy/AdvReac Type Severity Reaction Status Date / Time No Known Drug Allergies Allergy Verified 10/16/24 13:28 Review of Systems Review of Systems Narrative: Pertinent positive and negative findings as per HPI Patient History Medical History Hypertension Surgical History Hx of cardiac catheterization Family History Mother Diabetes mellitus Brother Myocardial infarction Hx of arterial ischemic stroke Diabetes mellitus Father Heart disease Social History household members: spouse and children Smoking Status: Never smoker alcohol intake: never Smoking Status: Never smoker alcohol intake frequency: 0-2 drinks per day Exam Initial Vital Signs Initial Vital Signs: Vital Signs Pulse Rate 75 10/16/24 13:28 Respiratory Rate 18 10/16/24 13:28 Blood Pressure 211/101 H 10/16/24 13:28 Pulse Oximetry 100 10/16/24 13:28 Oxygen Delivery Method Room Air 10/16/24 13:28 General: Healthy appearing, in no acute distress. Able to give a complete and coherent history. Well-nourished well-developed HEENT: Moist mucous membranes, normal sclera with reactive pupils, Neck: No JVD, supple Respiratory: Lungs are clear to auscultation, no wheezing no rales no rhonchi. Full and symmetrical air movement Cardiac: Regular rate and rhythm no murmurs no bruits Chest: Simple pressure along the sternal border reproduces her pain. She has some minor epigastric pain she does not have right upper quadrant tenderness Abdomen: Soft,She has some minor epigastric pain she does not have right upper quadrant tenderness Skin: Warm and dry, no rashes Neurologic: Grossly neurologically intact with no obvious asymmetries or abnormalities Extremities: No trauma, well perfused Psych: Cooperative, appropriate insight and affect Course Orders Ordered: ED Orders 10/16/24 13:35 XR chest 1V Stat EKG-12 Lead Stat 10/16/24 13:45 Complete Blood Count AUTO DIFF Stat Comprehensive Metabolic Panel Stat Lipase Stat Magnesium Stat Troponin I Stat 10/16/24 15:25 Urinalysis and Microscopic Stat Urine Culture Stat 10/16/24 16:21 Trop I [Troponin I] Stat Nitroglycerin (Nitroglycerin 0.4 Mg Sl Tab) 0.4 mg SL [id number] PRN PRN Reason: Chest Pain Discontinued Medications Acetaminophen (Acetaminophen 325 Mg Tablet) 975 mg PO NOW ONE Stop: 10/16/24 16:03 Last Admin: 10/16/24 16:18 Dose: 975 mg Documented By: Ketorolac Tromethamine (Ketorolac 30 Mg/Ml Vial) 15 mg IV NOW ONE Stop: 10/16/24 16:04 Last Admin: 10/16/24 16:18 Dose: 15 mg Documented By: Vital Signs Vital signs: Vital Signs - 8 hr 10/16/24 13:28 10/16/24 13:35 10/16/24 13:36 Pulse Rate 75 72 Respiratory Rate 18 Blood Pressure 211/101 H 165/93 H Pulse Oximetry 100 100 Oxygen Delivery Method Room Air 10/16/24 13:36 10/16/24 14:00 10/16/24 14:00 Pulse Rate 71 59 L Respiratory Rate 21 Blood Pressure 164/83 H Pulse Oximetry 100 100 Oxygen Delivery Method Room Air 10/16/24 14:30 10/16/24 14:30 10/16/24 15:00 Pulse Rate 65 64 Respiratory Rate 19 23 Blood Pressure 184/90 H Pulse Oximetry 100 100 Oxygen Delivery Method 10/16/24 15:01 10/16/24 15:01 10/16/24 15:26 Pulse Rate 67 Respiratory Rate 23 Blood Pressure 174/80 H 154/78 H Pulse Oximetry 100 Oxygen Delivery Method 10/16/24 15:26 10/16/24 15:30 10/16/24 15:30 Pulse Rate 66 65 Respiratory Rate 15 14 Blood Pressure 156/65 H Pulse Oximetry 100 99 Oxygen Delivery Method Room Air 10/16/24 16:00 10/16/24 16:00 Pulse Rate 55 L Respiratory Rate 14 Blood Pressure 145/67 H Pulse Oximetry 99 Oxygen Delivery Method Room Air MDM - Chest Pain Lab Data 10/16/24 13:45 10/16/24 13:45 Labs: Lab Results 10/16/24 10/16/24 10/16/24 Range/Units 13:45 15:25 16:21 WBC 5.5 (4.5-11.0) X10^3/uL RBC 4.59 (4.0-5.2) X10^6/uL Hgb 14.2 (12.0-16.0) g/dL Hct 41.5 (36-46) % MCV 90.3 (80-100) fL MCH 30.8 (26-34) PG MCHC 34.1 (30-36) % RDW 14.6 (11.6-14.8) % Plt Count 231 (150-400) X10^3/uL Neut % (Auto) 51.8 (50-75) % Lymph % (Auto) 40.8 H (25-40) % [place] % (Auto) 5.5 (3-14) % Eos % (Auto) 1.4 L (2-4) % Baso % (Auto) 0.5 (0-2) % Neut # (Auto) 2800 (6233-9242) /uL Lymph # (Auto) 2200 (0831-9925) /uL [place] # (Auto) 300 (0-900) /uL Eos # (Auto) 100 (0-450) /uL Baso # (Auto) 0 (0-100) /uL Sodium 141 (137-145) mmol/L Potassium 3.7 (3.4-5.1) mmol/L Chloride 108 H (98-107) mmol/L Carbon Dioxide 22 (22-32) mmol/L BUN 14 (7-17) mg/dL Creatinine 0.63 (0.52-1.04) mg/dL Estimated GFR > 60 (>60) mL/min BUN/Creatinine Ratio 22.2 H (6-22) Glucose 82 (70-99) mg/dL Calcium 9.2 (8.4-10.2) mg/dL Magnesium 1.9 (1.6-2.3) mg/dL Total Bilirubin 0.7 (0.2-1.3) mg/dL AST 34 (14-36) IU/L ALT 21 (<35) IU/L Alkaline Phosphatase 83 (38-126) U/L Troponin I < 0.012 < 0.012 (0.01-0.034) ng/mL Total Protein 8.2 (6.3-8.2) g/dL Albumin 4.7 (3.5-5.0) g/dL Globulin 3.5 (1.7-4.1) g/dL Albumin/Globulin Ratio 1.3 (1.0-2.8) Lipase 71 (23-300) U/L Urine Color Yellow Urine Appearance Cloudy Urine pH 6.0 (4.5-8.0) Ur Specific [place] 1.015 (1.000-1.035) Urine Protein Trace H (Negative) Urine Glucose (UA) Negative (Negative) g/dL Urine Ketones 1+ H (NEGATIVE) Urine Occult Blood 2+ H (Negative) Urine Nitrate Positive H (Negative) Urine Bilirubin Negative (NEGATIVE) Urine Urobilinogen 0.2 (0.2) E.U./dL Ur Leukocyte Esterase 3+ H (NEGATIVE) Urine RBC 1-5/hpf (0-5/HPF) Urine WBC 30-100/hpf H (0-5/HPF) Ur Squamous Epith Cells None seen D (0-5/HPF) Urine Bacteria Many (>30) H (None) Ur Culture Indicated? Specimen cultured Vol Urine Centrifuged 10ml (spun) MDM Narrative Medical decision making narrative: CC: Chest pain for greater than 24 hours Complicating co-morbidities: Hypertension, hyperlipidemia, early heart disease in her family Data collected from: patient Differential considered: Acute coronary syndrome, costochondritis, musculoskeletal pain, gallbladder pain, pneumonia Exam documented above, pertinent findings include: Patient does have reproducible chest pain with palpation minor epigastric pain no reproducible pain with palpation into the neck shoulders or jaw Lab Test results independently reviewed as above. Pertinent findings: CBC is reassured Chemistries are unremarkable Troponin and repeat troponin are undetectable Urinalysis actually appears to be a bladder infection she has occult blood positive nitrites 3+ leukocyte esterase, white cells and many bacteria Independently reviewed EKG: Sinus rhythm at a rate of 65 with no acute ischemic changes Imaging studies independently reviewed: Chest x-ray is unremarkable with no obvious infiltrates or pneumothorax Treatments: Tylenol, Toradol, Discussion: 54-year-old woman with central chest pain for more than 24 hours worse with palpation, workup is negative for acute coronary syndrome, infection, pneumothorax, once pain was appropriately addressed her blood pressures come down appropriately this is not an acute hypertensive crisis. On re-evaluation after Tylenol and IV Toradol pain is almost entirely resolved. Most likely explanation at this point is costochondritis, findings concerns and treatment are all reviewed with the patient. She is quite relieved, questions are answered she is safe for discharge home at this time Discharge Plan Departure Patient Disposition: Home Clinical Impression: Acute costochondritis Instructions: DI for Costochondritis Activity Restrictions/Additional Instructions: Thank you for coming in today Your workup was very reassuring. There was no evidence of heart attack or heart attack like syndrome, no pneumonia or other infection, your kidney function and liver function are very reassuring. There is no life-threatening reason for your pain that I was able to identify today When pressing along your breastbone each of the little cartilage is where the ribs supervisor dimension warehouse was quite tender. That tenderness seemed to improve significantly with the Toradol and ibuprofen you were given. I suspect that you do have costochondritis as a source of your pain. I am not quite sure why this flares occasionally but it typically takes about a week for the pain to completely resolve. Using 400 mg of ibuprofen (2 [id number] pills) and 1 Tylenol every 6 hours can be very helpful in controlling pain. If you find that you are getting worse or develop any new symptoms, please feel free to return to the emergency department for further evaluation. Prescriptions: No Action nitroglycerin 0.4 mg tablet, sublingual 0.4 mg sublingual PRN PRN (Reason: Chest Pain) Patient Comments: Place 1 tablet under tongue every five minutes for up to three doses, for chest pain. If no relief call 911. lisinopril 20 mg Tablet 20 mg PO BID Qty: 60 0RF aspirin 81 mg Tablet,Delayed Release (Dr/Ec) 81 mg PO DAILY Qty: 30 0RF spironolactone 100 mg tablet 100 mg PO DAILY Qty: 30 0RF Referrals: Love Pearl FNP-C [Primary Care Provider, Family Practice] Stand Alone Forms: Patient Portal/API
== END 2024-10-16 18:02 | disposition home or self-care (01) ==
PROVIDERS: Emergency Provider Emergency Medicine; PCP Registered Nurse
DX: M94.0 Chondrocostal junction syndrome [Tietze] (principal); N39.0 Urinary tract infection, site not specified
CPT/HCPCS: 36415; 71045; 80053; 81001; 83690; 83735; 84484; 85025; 87077; 87086; 87186; 93005; 93010; 96374; 99284; J1885